=== PATIENT | female | born 1945 | race Two or more races ===

== ENCOUNTER 2022-01-09 21:40 | Inpatient (IN) | payer MEDICAID, OTHER ==
[~2022-01-09] VITALS: Ht 157.5 cm; Wt 77.7 kg
[2022-01-10 00:26] LABS: Basophils # (auto) 0.1 10 ^3/uL (0-0.2); Basophils % (auto) 0.3 % (0.0-2.0); Monocytes # (auto) 0.9 10 ^3/uL (0-1.3)
[2022-01-10 00:28] LABS: Eosinophils # (auto) 0.1 10 ^3/uL (0-0.8); Eosinophils % (auto) 0.3 % (0.0-7.0); Hematocrit 32.6 % (36.0-46.0); Hemoglobin 10.9 g/dL (12.2-16.2); Lymphocytes # (auto) 2.1 10 ^3/uL (0.4-5.4); Lymphocytes % (auto) 10.8 % (10.0-50.0); Mean Corpuscular Hemoglobin 28.2 pg (28.0-32.0); Mean Corpuscular Hgb Conc. 33.3 g/dL (32.0-36.0); Mean Corpuscular Volume 84.7 fL (80.0-100.0); Monocytes % (auto) 4.5 % (0.0-12.0); Neutrophils # (auto) 16.2 10 ^3/uL (1.6-8.6); Neutrophils % (auto) 84.1 % (37.0-80.0); Red Blood Cells 3.85 10^6/uL (4.0-5.20); Red Cell Distribution Width 13.4 % (11.8-14.3); White Blood Cell 19.2 10^3/uL (4.4-10.8)
[2022-01-10] MEDS ORDERED: HYDROcodone-ACET 5/325MG TAB PO ONE (00:30)
[2022-01-10 00:38] LABS: Albumin 2.2 g/dL (3.4-5.0); Anion Gap 11 (5-15); Calcium 8.5 mg/dL (8.5-10.1); Carbon Dioxide 20 mmol/L (21-32); Chloride 102 mmol/L (98-107); Glucose 311 mg/dL (74-106); Potassium 3.4 mmol/L (3.5-5.1); Sodium 133 mmol/L (136-145)
[2022-01-10] MEDS ORDERED: VANCOMYCIN 1GM/250ML 250 ML IV ONE (00:45)
[2022-01-10 00:47] LABS: Alanine Aminotransferase 16 U/L (13-56); Alkaline Phosphatase 136 U/L (45-117); Aspartate Aminotransferase 12 U/L (15-37); BUN/Creatinine Ratio 18.3; Bilirubin, Total 0.2 mg/dL (0.2-1.0); Blood Urea Nitrogen 20 mg/dL (7-18); GFR African American 63 mL/min; GFR Non-African American 52 mL/min; Total Protein 7.5 g/dL (6.4-8.2)
[2022-01-10 01:20] LABS: CRP High Sensitivity > 19.0 mg/dL (< 0.3)
[2022-01-10] MEDS ORDERED: ONDANSETRON HCL 4 MG/2 ML VIAL IV PRN (06:00)
[2022-01-10] MEDS ORDERED: cloNIDine HCL 0.1 MG TAB PO PRN (06:00)
[2022-01-10] MEDS ORDERED: DEXTROSE (50%) 50ML SYRG IV PRN (06:00)
[2022-01-10] MEDS ORDERED: VANCOMYCIN PER PHARMACY 0 MG IV SCH (06:00)
[2022-01-10] MEDS: cefTRIAXone 1GM/50ML D5W 50 ML IV SCH (07:33)
[2022-01-10] MEDS: InsuLIN REG 1unit/0.01ml Soln (100units/ml) SC SCH ×4 (08:07→21:15)
[2022-01-10] MEDS: ACCU-CHEK COMFORT CURVE STRIP VI SCH ×4 (08:08→20:00)
[2022-01-10] MEDS: PANTOPRAZOLE 40 MG TAB PO SCH (09:37)
[2022-01-10] MEDS: amLODIPine BESYLATE 5 MG TAB PO SCH (09:41)
[2022-01-10] MEDS: HYDROcodone-ACET 5/325MG TAB PO PRN (13:00)
[2022-01-10 14:18] VITALS: BP 113/43
[2022-01-10] MEDS: metroNIDAZOLE 500 MG TAB PO SCH ×2 (14:46→21:13)
[2022-01-10] MEDS: ACETAMINOPHEN 325 MG TAB PO PRN ×2 (14:47→21:16)
[2022-01-10] MEDS ORDERED: INSREG3 SUBCUT (14:55)
[2022-01-10 16:41] VITALS: BP 116/53
[2022-01-10 20:00] VITALS: BP 152/43
[2022-01-10] MEDS: INSULIN LANTUS (GLARGINE) 1 /0.01ml (100units/ml) SC SCH (21:16)
[2022-01-10 22:00] VITALS: BP 152/43
[2022-01-11] MEDS: InsuLIN REG 1unit/0.01ml Soln (100units/ml) SC SCH ×6 (00:51→21:35)
[2022-01-11] MEDS: HYDROcodone-ACET 5/325MG TAB PO PRN ×3 (02:04→13:31)
[2022-01-11] MEDS: ACCU-CHEK COMFORT CURVE STRIP VI SCH ×6 (04:00→20:00)
[2022-01-11 05:00] VITALS: BP 139/45
[2022-01-11] MEDS: VANCOMYCIN 1GM/250ML 250 ML IV SCH (05:42)
[2022-01-11] MEDS: metroNIDAZOLE 500 MG TAB PO SCH ×3 (05:43→21:43)
[2022-01-11] MEDS: cefTRIAXone 1GM/50ML D5W 50 ML IV SCH (06:35)
[2022-01-11 06:46] LABS: Basophils # (auto) 0.1 10 ^3/uL (0-0.2); Basophils % (auto) 0.6 % (0.0-2.0); Eosinophils # (auto) 0.2 10 ^3/uL (0-0.8); Eosinophils % (auto) 1.4 % (0.0-7.0); Hematocrit 28.2 % (36.0-46.0); Hemoglobin 9.4 g/dL (12.2-16.2); Lymphocytes % (auto) 15.2 % (10.0-50.0); Mean Corpuscular Hemoglobin 28.1 pg (28.0-32.0); Mean Corpuscular Hgb Conc. 33.2 g/dL (32.0-36.0); Mean Corpuscular Volume 84.8 fL (80.0-100.0); Monocytes # (auto) 0.8 10 ^3/uL (0-1.3); Monocytes % (auto) 6.1 % (0.0-12.0); Neutrophils # (auto) 10.1 10 ^3/uL (1.6-8.6); Neutrophils % (auto) 76.7 % (37.0-80.0); Red Blood Cells 3.33 10^6/uL (4.0-5.20); Red Cell Distribution Width 13.4 % (11.8-14.3); White Blood Cell 13.2 10^3/uL (4.4-10.8)
[2022-01-11] MEDS: ACETAMINOPHEN 325 MG TAB PO PRN ×2 (06:46→21:43)
[2022-01-11 06:51] LABS: Albumin 1.8 g/dL (3.4-5.0); BUN/Creatinine Ratio 25.3; Calcium 8.6 mg/dL (8.5-10.1); Potassium 3.7 mmol/L (3.5-5.1)
[2022-01-11 07:01] LABS: Bilirubin, Total 0.2 mg/dL (0.2-1.0); Total Protein 6.4 g/dL (6.4-8.2)
[2022-01-11 08:53] VITALS: BP 140/40
[2022-01-11] MEDS: amLODIPine BESYLATE 5 MG TAB PO SCH (10:10)
[2022-01-11] MEDS: PANTOPRAZOLE 40 MG TAB PO SCH (10:10)
[2022-01-11 13:00] VITALS: BP 150/42
[2022-01-11] MEDS ORDERED: LOSARTAN POTASSIUM 25 MG TAB PO ONE (13:30)
[2022-01-11 17:00] VITALS: BP 161/54
[2022-01-11] MEDS ORDERED: HCTZ 25 MG TAB PO ONE (17:00)
[2022-01-11 20:00] VITALS: BP 149/50
[2022-01-11] MEDS: INSULIN LANTUS (GLARGINE) 1 /0.01ml (100units/ml) SC SCH (21:36)
[2022-01-11 21:46] VITALS: BP 151/53
[2022-01-12] MEDS: ACCU-CHEK COMFORT CURVE STRIP VI SCH ×6 (00:16→20:00)
[2022-01-12] MEDS: InsuLIN REG 1unit/0.01ml Soln (100units/ml) SC SCH ×6 (00:17→21:39)
[2022-01-12] MEDS: HYDROcodone-ACET 5/325MG TAB PO PRN ×2 (01:57→22:00)
[2022-01-12 04:31] VITALS: BP 131/65
[2022-01-12] MEDS: metroNIDAZOLE 500 MG TAB PO SCH ×3 (06:03→21:39)
[2022-01-12] MEDS: VANCOMYCIN 1GM/250ML 250 ML IV SCH (06:04)
[2022-01-12 09:00] VITALS: BP 154/80
[2022-01-12] MEDS ORDERED: CEFTRIAXONE SODIUM 2 GM in D5W 5% 50 ML IV SCH (10:00)
[2022-01-12] MEDS: amLODIPine BESYLATE 5 MG TAB PO SCH (11:28)
[2022-01-12] MEDS: HCTZ 25 MG TAB PO SCH (11:28)
[2022-01-12] MEDS: LOSARTAN POTASSIUM 25 MG TAB PO SCH (11:30)
[2022-01-12 13:00] VITALS: BP_SYST 101; BP_SYST 156; BP_DIAS 58; BP_DIAS 73
[2022-01-12 17:00] VITALS: BP 149/69
[2022-01-12] MEDS: PIPERACILLIN-TAZOB 3.375GM 100 ML IV SCH (17:38)
[2022-01-12 20:00] VITALS: BP 151/49
[2022-01-12] MEDS: INSULIN LANTUS (GLARGINE) 1 /0.01ml (100units/ml) SC SCH (21:40)
[2022-01-12] MEDS ORDERED: CEFEPIME 2 GM in SODIUM CHL 0.9% 50 ML IV SCH (22:00)
[2022-01-12 22:20] VITALS: BP 135/83
[2022-01-13] MEDS: InsuLIN REG 1unit/0.01ml Soln (100units/ml) SC SCH ×7 (00:43→23:17)
[2022-01-13] MEDS: PIPERACILLIN-TAZOB 3.375GM 100 ML IV SCH ×5 (00:44→23:18)
[2022-01-13] MEDS: ACCU-CHEK COMFORT CURVE STRIP VI SCH ×7 (04:00→23:18)
[2022-01-13 04:30] VITALS: BP 167/36
[2022-01-13] MEDS: HYDROcodone-ACET 5/325MG TAB PO PRN ×4 (04:45→20:20)
[2022-01-13] MEDS: metroNIDAZOLE 500 MG TAB PO SCH ×3 (05:37→21:55)
[2022-01-13] MEDS: VANCOMYCIN 1GM/250ML 250 ML IV SCH (06:30)
[2022-01-13 09:00] VITALS: BP 139/51
[2022-01-13] MEDS: LOSARTAN POTASSIUM 25 MG TAB PO SCH (10:24)
[2022-01-13] MEDS: HCTZ 25 MG TAB PO SCH (10:25)
[2022-01-13] MEDS: amLODIPine BESYLATE 5 MG TAB PO SCH (10:25)
[2022-01-13 13:00] VITALS: BP 136/53
[2022-01-13 17:00] VITALS: BP 113/53
[2022-01-13 22:09] VITALS: BP 128/55
[2022-01-13] MEDS: INSULIN LANTUS (GLARGINE) 1 /0.01ml (100units/ml) SC SCH (23:16)
[2022-01-14] MEDS: VANCOMYCIN 1GM/250ML 250 ML IV SCH ×2 (02:32→21:31)
[2022-01-14] MEDS: ACCU-CHEK COMFORT CURVE STRIP VI SCH ×6 (03:37→23:28)
[2022-01-14] MEDS: InsuLIN REG 1unit/0.01ml Soln (100units/ml) SC SCH ×6 (03:38→23:28)
[2022-01-14 04:59] VITALS: BP 153/68
[2022-01-14] MEDS: metroNIDAZOLE 500 MG TAB PO SCH ×3 (05:14→21:30)
[2022-01-14] MEDS: PIPERACILLIN-TAZOB 3.375GM 100 ML IV SCH ×4 (05:14→23:29)
[2022-01-14] MEDS: HYDROcodone-ACET 5/325MG TAB PO PRN ×4 (05:14→19:58)
[2022-01-14 09:00] VITALS: BP 144/49
[2022-01-14 09:31] LABS: Albumin 1.8 g/dL (3.4-5.0); BUN/Creatinine Ratio 19.8; Calcium 8.4 mg/dL (8.5-10.1); Phosphorus 3.1 mg/dL (2.5-4.90); Potassium 3.6 mmol/L (3.5-5.1)
[2022-01-14] MEDS: HCTZ 25 MG TAB PO SCH (09:50)
[2022-01-14] MEDS: LOSARTAN POTASSIUM 25 MG TAB PO SCH (09:50)
[2022-01-14] MEDS: amLODIPine BESYLATE 5 MG TAB PO SCH (09:50)
[2022-01-14 13:00] VITALS: BP 149/60
[2022-01-14] MEDS ORDERED: MILK OF MAGNESIA 30ML SUSP PO ONE (14:30)
[2022-01-14] MEDS: DOCUSATE SOD 100 MG CAP PO PRN (15:23)
[2022-01-14 17:00] VITALS: BP 142/43
[2022-01-14] MEDS: INSULIN LANTUS (GLARGINE) 1 /0.01ml (100units/ml) SC SCH (21:59)
[2022-01-14 22:00] VITALS: BP 133/48
[2022-01-14] MEDS ORDERED: DOCUSATE SOD 100 MG CAP PO SCH (22:00)
[2022-01-15] MEDS: ACCU-CHEK COMFORT CURVE STRIP VI SCH ×5 (03:33→19:36)
[2022-01-15] MEDS: InsuLIN REG 1unit/0.01ml Soln (100units/ml) SC SCH ×6 (03:37→23:28)
[2022-01-15 05:00] VITALS: BP 137/50
[2022-01-15] MEDS: PIPERACILLIN-TAZOB 3.375GM 100 ML IV SCH ×3 (05:28→22:38)
[2022-01-15] MEDS: metroNIDAZOLE 500 MG TAB PO SCH (05:28)
[2022-01-15 06:24] LABS: Albumin 1.9 g/dL (3.4-5.0); BUN/Creatinine Ratio 20.7; Calcium 8.4 mg/dL (8.5-10.1); Phosphorus 3.3 mg/dL (2.5-4.90); Potassium 4.1 mmol/L (3.5-5.1)
[2022-01-15 09:00] VITALS: BP 109/58
[2022-01-15] MEDS: HCTZ 25 MG TAB PO SCH (10:13)
[2022-01-15] MEDS: LOSARTAN POTASSIUM 25 MG TAB PO SCH (10:13)
[2022-01-15] MEDS: amLODIPine BESYLATE 5 MG TAB PO SCH (10:14)
[2022-01-15 10:40] LABS: Eosinophils # (auto) 0.1 10 ^3/uL (0-0.8); Lymphocytes # (auto) 1.3 10 ^3/uL (0.4-5.4); Monocytes # (auto) 0.9 10 ^3/uL (0-1.3); Red Blood Cells 3.68 10^6/uL (4.0-5.20)
[2022-01-15 10:45] LABS: Basophils # (auto) 0.1 10 ^3/uL (0-0.2); Basophils % (auto) 0.7 % (0.0-2.0); Eosinophils % (auto) 0.7 % (0.0-7.0); Hematocrit 31.4 % (36.0-46.0); Hemoglobin 10.1 g/dL (12.2-16.2); Lymphocytes % (auto) 10.9 % (10.0-50.0); Mean Corpuscular Hemoglobin 27.3 pg (28.0-32.0); Mean Corpuscular Volume 85.3 fL (80.0-100.0); Monocytes % (auto) 7.6 % (0.0-12.0); Neutrophils # (auto) 9.6 10 ^3/uL (1.6-8.6); Neutrophils % (auto) 80.1 % (37.0-80.0); Red Cell Distribution Width 13.2 % (11.8-14.3)
[2022-01-15] MEDS ORDERED: ASPirin 81 mg TAB PO ONE (12:15)
[2022-01-15 13:00] VITALS: BP 149/68
[2022-01-15 13:28] LABS: Cholesterol 76 mg/dL (< 200)
[2022-01-15 13:31] LABS: HDL Cholesterol 21 mg/dL (40-59); LDL Cholesterol 43 mg/dL (< 100); Triglycerides 82 mg/dL (< 150)
[2022-01-15] MEDS: HYDROcodone-ACET 5/325MG TAB PO PRN (15:33)
[2022-01-15 17:00] VITALS: BP 143/63
[2022-01-15] MEDS: DOCUSATE SOD 100 MG CAP PO PRN (21:27)
[2022-01-15] MEDS: ATORVASTATIN 20 MG TAB PO SCH ×2 (21:27→21:44)
[2022-01-15 22:51] VITALS: BP 145/56
[2022-01-15] MEDS: INSULIN LANTUS (GLARGINE) 1 /0.01ml (100units/ml) SC SCH (23:28)
[2022-01-16] MEDS: ACCU-CHEK COMFORT CURVE STRIP VI SCH ×7 (00:06→23:36)
[2022-01-16] MEDS: PIPERACILLIN-TAZOB 3.375GM 100 ML IV SCH ×4 (03:48→22:40)
[2022-01-16] MEDS: InsuLIN REG 1unit/0.01ml Soln (100units/ml) SC SCH ×6 (03:55→23:37)
[2022-01-16] MEDS: HYDROcodone-ACET 5/325MG TAB PO PRN ×2 (04:11→11:22)
[2022-01-16 05:25] LABS: Hemoglobin 9.1 g/dL (12.2-16.2); Mean Corpuscular Hemoglobin 28.5 pg (28.0-32.0); Monocytes # (auto) 0.9 10 ^3/uL (0-1.3); Red Cell Distribution Width 13.3 % (11.8-14.3)
[2022-01-16 05:29] LABS: Basophils # (auto) 0 10 ^3/uL (0-0.2); Basophils % (auto) 0.4 % (0.0-2.0); Eosinophils # (auto) 0.1 10 ^3/uL (0-0.8); Eosinophils % (auto) 0.5 % (0.0-7.0); Hematocrit 26.7 % (36.0-46.0); Lymphocytes # (auto) 1.6 10 ^3/uL (0.4-5.4); Lymphocytes % (auto) 14.7 % (10.0-50.0); Mean Corpuscular Hgb Conc. 34.2 g/dL (32.0-36.0); Mean Corpuscular Volume 83.5 fL (80.0-100.0); Monocytes % (auto) 8.4 % (0.0-12.0); Neutrophils # (auto) 8.1 10 ^3/uL (1.6-8.6); Red Blood Cells 3.19 10^6/uL (4.0-5.20); White Blood Cell 10.6 10^3/uL (4.4-10.8)
[2022-01-16 05:46] VITALS: BP 135/45
[2022-01-16 06:26] LABS: BUN/Creatinine Ratio 19.6; Calcium 8.6 mg/dL (8.5-10.1); Potassium 3.5 mmol/L (3.5-5.1)
[2022-01-16 09:00] VITALS: BP 121/52
[2022-01-16] MEDS ORDERED: ASPirin 81 mg TAB PO SCH (10:00)
[2022-01-16] MEDS: amLODIPine BESYLATE 5 MG TAB PO SCH (11:21)
[2022-01-16] MEDS: HCTZ 25 MG TAB PO SCH (11:23)
[2022-01-16 13:00] VITALS: BP 142/41
[2022-01-16 17:00] VITALS: BP 116/68
[2022-01-16] MEDS: LOSARTAN POTASSIUM 25 MG TAB PO SCH (18:31)
[2022-01-16] MEDS: ATORVASTATIN 20 MG TAB PO SCH (21:37)
[2022-01-16 22:14] VITALS: BP 91/40
[2022-01-16] MEDS: INSULIN LANTUS (GLARGINE) 1 /0.01ml (100units/ml) SC SCH (23:38)
[2022-01-17] VITALS (8 sets, daily range): BP systolic 106–168; BP diastolic 44–53
[2022-01-17] MEDS: PIPERACILLIN-TAZOB 3.375GM 100 ML IV SCH ×4 (03:52→22:19)
[2022-01-17] MEDS: InsuLIN REG 1unit/0.01ml Soln (100units/ml) SC SCH ×6 (03:53→23:22)
[2022-01-17] MEDS: ACCU-CHEK COMFORT CURVE STRIP VI SCH ×6 (03:53→23:13)
[2022-01-17 04:55] LABS: Urine Bacteria NONE SEEN /hpf (None Seen); Urine Blood Negative /uL (Negative); Urine Specific Gravity 1.008 (1.001-1.035); Urine WBC <1 /hpf (0 - 5)
[2022-01-17 06:19] LABS: Basophils # (auto) 0.1 10 ^3/uL (0-0.2); Basophils % (auto) 0.5 % (0.0-2.0); Eosinophils # (auto) 0.1 10 ^3/uL (0-0.8); Hemoglobin 9.1 g/dL (12.2-16.2)
[2022-01-17 06:22] LABS: Eosinophils % (auto) 1.3 % (0.0-7.0); Lymphocytes # (auto) 1.7 10 ^3/uL (0.4-5.4); Lymphocytes % (auto) 16.3 % (10.0-50.0); Mean Corpuscular Hemoglobin 28.3 pg (28.0-32.0); Mean Corpuscular Hgb Conc. 33.7 g/dL (32.0-36.0); Mean Corpuscular Volume 83.8 fL (80.0-100.0); Monocytes % (auto) 9.4 % (0.0-12.0); Neutrophils # (auto) 7.4 10 ^3/uL (1.6-8.6); Neutrophils % (auto) 72.5 % (37.0-80.0); Red Blood Cells 3.22 10^6/uL (4.0-5.20); Red Cell Distribution Width 13.1 % (11.8-14.3); White Blood Cell 10.2 10^3/uL (4.4-10.8)
[2022-01-17 06:32] LABS: INR 1.13 (0.9-1.15); Partial Thromboplastin Time 33.7 sec (24.6-33.4)
[2022-01-17 06:40] LABS: Calcium 8.4 mg/dL (8.5-10.1); Potassium 4.1 mmol/L (3.5-5.1)
[2022-01-17 06:42] LABS: BUN/Creatinine Ratio 24.2
[2022-01-17] MEDS ORDERED: fentaNYL CITRATE 100 MCG/2 ML VL ONE (09:29)
[2022-01-17] MEDS ORDERED: ANGIOMAX 250 MG VIAL IV ONE ×2 (09:29→11:08)
[2022-01-17] MEDS ORDERED: MIDAZOLAM HCL 2MG/2ML 2ml VIAL (1mg/ml) ONE (09:30)
[2022-01-17] MEDS ORDERED: SODIUM CHL 0.9% 50 ML ONE ×2 (09:30→11:08)
[2022-01-17] MEDS ORDERED: LIDOCAINE 2%HCL (LOCAL ANESTH.) INJ 20ML MDV ONE (09:32)
[2022-01-17] MEDS: HCTZ 25 MG TAB PO SCH (10:00)
[2022-01-17] MEDS: amLODIPine BESYLATE 5 MG TAB PO SCH (10:00)
[2022-01-17] MEDS: LOSARTAN POTASSIUM 25 MG TAB PO SCH (10:00)
[2022-01-17] MEDS ORDERED: IODIXANOL 320MG/ML 100ML BTL IV ONE (10:34)
[2022-01-17] MEDS ORDERED: HYDROmorphone HCL 2 MG/ML VL/or syr ONE (10:48)
[2022-01-17] MEDS ORDERED: CLOPIDOGREL 300 MG TAB ONE (11:56)
[2022-01-17] MEDS: ATORVASTATIN 20 MG TAB PO SCH (22:19)
[2022-01-17] MEDS: RIVAROXABAN 10 MG TAB PO SCH (22:19)
[2022-01-17] MEDS: INSULIN LANTUS (GLARGINE) 1 /0.01ml (100units/ml) SC SCH (23:21)
[2022-01-18] MEDS: PIPERACILLIN-TAZOB 3.375GM 100 ML IV SCH ×4 (04:13→22:00)
[2022-01-18] MEDS: ACCU-CHEK COMFORT CURVE STRIP VI SCH ×5 (04:13→20:13)
[2022-01-18] MEDS: InsuLIN REG 1unit/0.01ml Soln (100units/ml) SC SCH ×5 (04:17→20:23)
[2022-01-18 05:00] VITALS: BP 148/52
[2022-01-18 08:50] VITALS: BP 139/76
[2022-01-18 09:15] LABS: Basophils # (auto) 0 10 ^3/uL (0-0.2); Eosinophils # (auto) 0.1 10 ^3/uL (0-0.8); Hemoglobin 10.1 g/dL (12.2-16.2); Lymphocytes # (auto) 1.4 10 ^3/uL (0.4-5.4); Red Blood Cells 3.71 10^6/uL (4.0-5.20)
[2022-01-18 09:17] LABS: Basophils % (auto) 0.2 % (0.0-2.0); Eosinophils % (auto) 0.8 % (0.0-7.0); Hematocrit 31.9 % (36.0-46.0); Lymphocytes % (auto) 11.3 % (10.0-50.0); Mean Corpuscular Hemoglobin 27.2 pg (28.0-32.0); Mean Corpuscular Hgb Conc. 31.7 g/dL (32.0-36.0); Monocytes # (auto) 0.8 10 ^3/uL (0-1.3); Monocytes % (auto) 6.9 % (0.0-12.0); Neutrophils # (auto) 9.9 10 ^3/uL (1.6-8.6); Neutrophils % (auto) 80.8 % (37.0-80.0); Red Cell Distribution Width 13.4 % (11.8-14.3); White Blood Cell 12.3 10^3/uL (4.4-10.8)
[2022-01-18] MEDS: LOSARTAN POTASSIUM 25 MG TAB PO SCH (09:26)
[2022-01-18] MEDS: HCTZ 25 MG TAB PO SCH (09:27)
[2022-01-18] MEDS: amLODIPine BESYLATE 5 MG TAB PO SCH (09:27)
[2022-01-18] MEDS: RIVAROXABAN 10 MG TAB PO SCH ×2 (09:28→22:37)
[2022-01-18 09:33] LABS: Calcium 8.7 mg/dL (8.5-10.1); Potassium 4.1 mmol/L (3.5-5.1)
[2022-01-18] MEDS ORDERED: CLOPIDOGREL BISULFATE 75 MG TAB PO SCH (10:00)
[2022-01-18] MEDS ORDERED: SODIUM CHLORIDE 0.9% 1,000 ML IV SCH (10:00)
[2022-01-18] MEDS ORDERED: HYDR25TA5 PO (12:15)
[2022-01-18] MEDS ORDERED: LOSA-39 PO (12:15)
[2022-01-18] MEDS ORDERED: AML5T PO (12:15)
[2022-01-18] MEDS ORDERED: CLOP75TA70 PO (12:15)
[2022-01-18] MEDS ORDERED: ATOR20TA50 PO (12:15)
[2022-01-18] MEDS ORDERED: METF-490 PO (12:17)
[2022-01-18] MEDS ORDERED: RIV15T PO (12:17)
[2022-01-18] MEDS ORDERED: GLIP10TA16 PO (12:18)
[2022-01-18] MEDS ORDERED: LEVO750T64 PO (12:20)
[2022-01-18] MEDS ORDERED: DOXY-112 PO (12:20)
[2022-01-18] MEDS ORDERED: [UNRECOGNIZED DRUG - CODE] EX (12:23)
[2022-01-18 13:08] VITALS: BP 101/65
[2022-01-18] MEDS: HYDROcodone-ACET 5/325MG TAB PO PRN (17:00)
[2022-01-18 17:31] VITALS: BP 109/41
[2022-01-18 19:00] VITALS: BP 109/41
[2022-01-18] MEDS ORDERED: METOCLOPRAMIDE HCL 10 MG TAB PO ONE (19:45)
[2022-01-18] MEDS ORDERED: DexAMETHasone 4 MG TAB PO ONE (19:45)
[2022-01-18] MEDS ORDERED: diphenhdrAMINE HCL 25 MG CAP PO ONE (19:45)
[2022-01-18 22:00] VITALS: BP 123/43
[2022-01-18] MEDS: ATORVASTATIN 20 MG TAB PO SCH (22:37)
[2022-01-18] MEDS: INSULIN LANTUS (GLARGINE) 1 /0.01ml (100units/ml) SC SCH (22:51)
== END 2022-01-18 23:10 | disposition home or self-care (01) | DRG 710 ==
LOC: ER 21:47 → EDBD 21:47 → OVERFLOW 01-10 06:03 → EAST 01-10 13:59
PROVIDERS: ADMIT Nurse Practitioner; ATTEND Internal Medicine Nephrology
PROC: 047P3ZZ Dilation of Right Anterior Tibial Artery, Percutaneous Approach (ICD-10-PCS; principal; 2022-01-17)
PROC: 047N3ZZ Dilation of Left Popliteal Artery, Percutaneous Approach (ICD-10-PCS; 2022-01-17)
PROC: 047M3ZZ Dilation of Right Popliteal Artery, Percutaneous Approach (ICD-10-PCS; 2022-01-17)
PROC: B41G1ZZ Fluoroscopy of Left Lower Extremity Arteries using Low Osmolar Contrast (ICD-10-PCS; 2022-01-17)
PROC: B41F1ZZ Fluoroscopy of Right Lower Extremity Arteries using Low Osmolar Contrast (ICD-10-PCS; 2022-01-17)
DX: A41.9 Sepsis, unspecified organism (principal); E43 Unspecified severe protein-calorie malnutrition; N17.9 Acute kidney failure, unspecified; E11.22 Type 2 diabetes mellitus with diabetic chronic kidney disease; L97.509 Non-pressure chronic ulcer of other part of unspecified foot with unspecified severity; L02.612 Cutaneous abscess of left foot; M86.8X7 Other osteomyelitis, ankle and foot; E11.51 Type 2 diabetes mellitus with diabetic peripheral angiopathy without gangrene; E11.621 Type 2 diabetes mellitus with foot ulcer; Z20.822 Contact with and (suspected) exposure to COVID-19; N18.9 Chronic kidney disease, unspecified; E11.65 Type 2 diabetes mellitus with hyperglycemia; E87.6 Hypokalemia; S90.32XA Contusion of left foot, initial encounter; W18.39XA Other fall on same level, initial encounter; I12.9 Hypertensive chronic kidney disease with stage 1 through stage 4 chronic kidney disease, or unspecified chronic kidney disease; E11.69 Type 2 diabetes mellitus with other specified complication; S92.009A Unspecified fracture of unspecified calcaneus, initial encounter for closed fracture; Z79.4 Long term (current) use of insulin; Z68.31 Body mass index [BMI] 31.0-31.9, adult; Y93.89 Activity, other specified; Y92.89 Other specified places as the place of occurrence of the external cause; Y99.8 Other external cause status
CPT/HCPCS: 36415; 37224; 37228; 71045; 73630; 73700; 73721; 75716; 80048; 80053; 80061; 80069; 80202; 81001; 82565; 82962; 83036; 83605; 85025; 85610; 85652; 85730; 86141; 87040; 87077; 87186; 87205; 87426; 93005; 93926; 96365; 96367; 99152; 99153; A4565; C1769; G0378; J0696; J1815; J2250; J2405; J2543; J7060; Q9967

== ENCOUNTER 2022-02-05 21:00 | Inpatient (IN) | payer MEDICAID ==
[~2022-02-05] VITALS: Ht 157.5 cm; Wt 65.2 kg
[~2022-02-05 21:00] MED LIST: AML5T PO; ATOR20TA50 PO; CLOP75TA70 PO; DOXY-112 PO; GLIP10TA16 PO; HYDR25TA5 PO; INSREG3 SUBCUT; LEVO750T64 PO; LOSA-39 PO; METF-490 PO; RIV15T PO; [UNRECOGNIZED DRUG - CODE] EX
[2022-02-05 23:01] LABS: Basophils # (auto) 0.1 10 ^3/uL (0-0.2); Eosinophils # (auto) 0.1 10 ^3/uL (0-0.8); Hemoglobin 8.6 g/dL (12.2-16.2); Neutrophils # (auto) 9.4 10 ^3/uL (1.6-8.6); White Blood Cell 12.3 10^3/uL (4.4-10.8)
[2022-02-05 23:03] LABS: Basophils % (auto) 0.8 % (0.0-2.0); Hematocrit 26.3 % (36.0-46.0); Lymphocytes # (auto) 1.9 10 ^3/uL (0.4-5.4); Lymphocytes % (auto) 15.6 % (10.0-50.0); Mean Corpuscular Hemoglobin 26.6 pg (28.0-32.0); Mean Corpuscular Hgb Conc. 32.8 g/dL (32.0-36.0); Mean Corpuscular Volume 81.2 fL (80.0-100.0); Monocytes # (auto) 0.8 10 ^3/uL (0-1.3); Monocytes % (auto) 6.2 % (0.0-12.0); Neutrophils % (auto) 76.4 % (37.0-80.0); Red Blood Cells 3.24 10^6/uL (4.0-5.20); Red Cell Distribution Width 13.3 % (11.8-14.3)
[2022-02-05 23:23] LABS: Albumin 2.3 g/dL (3.4-5.0); BUN/Creatinine Ratio 30.9; Calcium 8.7 mg/dL (8.5-10.1)
[2022-02-05 23:27] LABS: Bilirubin, Total 0.4 mg/dL (0.2-1.0); Total Protein 7.9 g/dL (6.4-8.2)
[2022-02-06] MEDS ORDERED: VANCOMYCIN 1GM/250ML 250 ML IV ONE (02:00)
[2022-02-06] MEDS ORDERED: diphenhdrAMINE HCL 50 MG/1 ML VL IV ONE (03:45)
[2022-02-06] MEDS ORDERED: SODIUM CHLORIDE 0.9% 1,000 ML IV ONE (04:30)
[2022-02-06] MEDS ORDERED: amLODIPine BESYLATE 5 MG TAB PO ONE (04:30)
[2022-02-06] MEDS ORDERED: ceFAZolin 1GM/50ML 50 ML IV SCH (05:00)
[2022-02-06 05:50] LABS: Urine Bacteria FEW /hpf (None Seen); Urine Blood Negative /uL (Negative); Urine Specific Gravity 1.005 (1.001-1.035); Urine WBC 20 /hpf (0 - 5)
[2022-02-06] MEDS ORDERED: DEXTROSE (50%) 50ML SYRG IV PRN (06:30)
[2022-02-06] MEDS: CLINDAMYCIN 900MG IV 50 ML IV SCH ×2 (06:37→14:27)
[2022-02-06 06:43] LABS: Alcohol, Urine < 3.0 mg/dL (0-10); Amphetamine Screen, Urine NEGATIVE (NEGATIVE); Barbiturate Scree,Urine NEGATIVE (NEGATIVE); Benzodiazephine Screen, Urine NEGATIVE (NEGATIVE); Cannabinoid Screen, Urine NEGATIVE (NEGATIVE); Cocaine Screen, Urine NEGATIVE (NEGATIVE); Opiate Scree,Urine NEGATIVE (NEGATIVE); Phencyclidine Screen, Urine NEGATIVE (NEGATIVE)
[2022-02-06] MEDS: ACCU-CHEK COMFORT CURVE STRIP VI SCH ×4 (06:54→21:43)
[2022-02-06] MEDS: InsuLIN REG 1unit/0.01ml Soln (100units/ml) SC SCH ×4 (06:57→22:10)
[2022-02-06] MEDS ORDERED: cefTRIAXone 1GM/50ML D5W 50 ML IV SCH (09:00)
[2022-02-06] MEDS: HCTZ 25 MG TAB PO SCH (10:24)
[2022-02-06] MEDS: PANTOPRAZOLE 40 MG TAB PO SCH (10:25)
[2022-02-06] MEDS: amLODIPine BESYLATE 5 MG TAB PO SCH (10:25)
[2022-02-06] MEDS: CLOPIDOGREL BISULFATE 75 MG TAB PO SCH (10:25)
[2022-02-06] MEDS: LOSARTAN POTASSIUM 50 MG TAB PO SCH (10:25)
[2022-02-06] MEDS: ACETAMINOPHEN 325 MG TAB PO PRN (13:33)
[2022-02-06] MEDS ORDERED: PIPERACILLIN-TAZOB 3.375GM 100 ML IV ONE (15:00)
[2022-02-06] MEDS ORDERED: LINEZOLID 600MG TABLET PO ONE (15:15)
[2022-02-06 17:00] VITALS: BP 122/40
[2022-02-06] MEDS: PIPERACILLIN-TAZOB 3.375GM 100 ML IV SCH (21:36)
[2022-02-06] MEDS: LINEZOLID 600MG TABLET PO SCH (21:37)
[2022-02-06] MEDS: ATORVASTATIN 20 MG TAB PO SCH (21:38)
[2022-02-06 22:00] VITALS: BP 152/43
[2022-02-06 23:00] VITALS: BP 150/40
[2022-02-06 23:20] VITALS: BP 141/42
[2022-02-07 02:13] VITALS: BP 126/36
[2022-02-07 05:00] VITALS: BP 136/45
[2022-02-07 05:38] LABS: Basophils # (auto) 0 10 ^3/uL (0-0.2); Basophils % (auto) 0.4 % (0.0-2.0); Eosinophils # (auto) 0.2 10 ^3/uL (0-0.8); Eosinophils % (auto) 2.1 % (0.0-7.0); Hematocrit 29.1 % (36.0-46.0); Hemoglobin 9.8 g/dL (12.2-16.2); Lymphocytes # (auto) 1.5 10 ^3/uL (0.4-5.4); Lymphocytes % (auto) 15.1 % (10.0-50.0); Mean Corpuscular Hemoglobin 28.1 pg (28.0-32.0); Mean Corpuscular Hgb Conc. 33.7 g/dL (32.0-36.0); Mean Corpuscular Volume 83.3 fL (80.0-100.0); Monocytes # (auto) 0.8 10 ^3/uL (0-1.3); Monocytes % (auto) 7.9 % (0.0-12.0); Neutrophils # (auto) 7.2 10 ^3/uL (1.6-8.6); Neutrophils % (auto) 74.5 % (37.0-80.0); Red Cell Distribution Width 13.3 % (11.8-14.3); White Blood Cell 9.7 10^3/uL (4.4-10.8)
[2022-02-07] MEDS: PIPERACILLIN-TAZOB 3.375GM 100 ML IV SCH ×3 (05:38→22:35)
[2022-02-07 05:56] LABS: Albumin 1.9 g/dL (3.4-5.0); Calcium 8.3 mg/dL (8.5-10.1); Potassium 3.7 mmol/L (3.5-5.1)
[2022-02-07 05:59] LABS: BUN/Creatinine Ratio 27.5
[2022-02-07 06:11] LABS: Bilirubin, Total 0.4 mg/dL (0.2-1.0); Total Protein 6.7 g/dL (6.4-8.2)
[2022-02-07 07:00] VITALS: BP 158/57
[2022-02-07] MEDS: ACCU-CHEK COMFORT CURVE STRIP VI SCH ×4 (07:00→22:36)
[2022-02-07] MEDS: InsuLIN REG 1unit/0.01ml Soln (100units/ml) SC SCH ×4 (07:00→22:37)
[2022-02-07 08:33] LABS: INR 1.12 (0.9-1.15)
[2022-02-07 09:00] VITALS: BP 134/45
[2022-02-07] MEDS: LINEZOLID 600MG TABLET PO SCH ×2 (10:00→22:35)
[2022-02-07] MEDS: HCTZ 25 MG TAB PO SCH (10:00)
[2022-02-07] MEDS: LOSARTAN POTASSIUM 50 MG TAB PO SCH (10:00)
[2022-02-07] MEDS: CLOPIDOGREL BISULFATE 75 MG TAB PO SCH (10:00)
[2022-02-07] MEDS: PANTOPRAZOLE 40 MG TAB PO SCH (10:00)
[2022-02-07] MEDS: amLODIPine BESYLATE 5 MG TAB PO SCH (10:00)
[2022-02-07] MEDS ORDERED: ceFAZolin 1GM/50ML 0 ML IV ONE (10:24)
[2022-02-07] MEDS ORDERED: BUPIVACAINE HCL 0.25% P/F 10 ML VIAL ONE (11:06)
[2022-02-07] MEDS ORDERED: LIDOCAINE 1%HCL (LOCAL ANESTH) 10 ML MDV ONE (11:06)
[2022-02-07] MEDS ORDERED: fentaNYL CITRATE 100 MCG/2 ML VL ONE (11:30)
[2022-02-07] MEDS ORDERED: MIDAZOLAM HCL 2MG/2ML 2ml VIAL (1mg/ml) ONE (11:30)
[2022-02-07] MEDS ORDERED: ETOMIDATE (2MG/ML) 20ML VIAL IV ONE (11:57)
[2022-02-07] MEDS ORDERED: HYDROmorphone HCL 2 MG/ML VL/or syr IV PRN (12:45)
[2022-02-07] MEDS ORDERED: ONDANSETRON HCL 4 MG/2 ML VIAL IV PRN (12:45)
[2022-02-07] MEDS: HYDROcodone-ACET 5/325MG TAB PO PRN ×2 (14:41→20:12)
[2022-02-07 16:51] VITALS: BP 131/46
[2022-02-07 21:47] VITALS: BP 155/50
[2022-02-07] MEDS: ATORVASTATIN 20 MG TAB PO SCH (22:35)
[2022-02-08] MEDS: HYDROcodone-ACET 5/325MG TAB PO PRN ×2 (00:38→09:15)
[2022-02-08 05:15] VITALS: BP 149/42
[2022-02-08] MEDS: PIPERACILLIN-TAZOB 3.375GM 100 ML IV SCH ×3 (05:45→21:53)
[2022-02-08] MEDS: InsuLIN REG 1unit/0.01ml Soln (100units/ml) SC SCH ×4 (06:06→21:56)
[2022-02-08] MEDS: ACCU-CHEK COMFORT CURVE STRIP VI SCH ×4 (06:06→21:54)
[2022-02-08 09:00] VITALS: BP 154/43
[2022-02-08] MEDS: PANTOPRAZOLE 40 MG TAB PO SCH (09:08)
[2022-02-08] MEDS: HCTZ 25 MG TAB PO SCH (09:10)
[2022-02-08] MEDS: amLODIPine BESYLATE 5 MG TAB PO SCH (09:10)
[2022-02-08] MEDS: LOSARTAN POTASSIUM 50 MG TAB PO SCH (09:11)
[2022-02-08] MEDS: CLOPIDOGREL BISULFATE 75 MG TAB PO SCH (09:12)
[2022-02-08] MEDS: LINEZOLID 600MG TABLET PO SCH (09:12)
[2022-02-08] MEDS: MORPHINE SULFATE INJ 2 MG/ml SYRG IV PRN ×2 (11:32→20:47)
[2022-02-08 13:00] VITALS: BP 127/56
[2022-02-08 17:00] VITALS: BP 135/48
[2022-02-08] MEDS: ATORVASTATIN 20 MG TAB PO SCH (21:54)
[2022-02-08] MEDS: DAKINS QUARTER STR 0.125% (NaHypochlorite) 473 ML TOPICAL SOL TOP SCH (21:57)
[2022-02-08 22:00] VITALS: BP 156/43
[2022-02-09 05:00] VITALS: BP 121/31
[2022-02-09] MEDS: HYDROcodone-ACET 5/325MG TAB PO PRN ×2 (05:04→23:53)
[2022-02-09] MEDS: PIPERACILLIN-TAZOB 3.375GM 100 ML IV SCH (05:27)
[2022-02-09 06:04] LABS: Basophils # (auto) 0.1 10 ^3/uL (0-0.2); Basophils % (auto) 0.4 % (0.0-2.0); Eosinophils # (auto) 0.2 10 ^3/uL (0-0.8); Eosinophils % (auto) 1.3 % (0.0-7.0); Hematocrit 28.1 % (36.0-46.0); Hemoglobin 9.5 g/dL (12.2-16.2); Lymphocytes # (auto) 1.6 10 ^3/uL (0.4-5.4); Lymphocytes % (auto) 13.3 % (10.0-50.0); Mean Corpuscular Volume 82.4 fL (80.0-100.0); Monocytes # (auto) 0.8 10 ^3/uL (0-1.3); Monocytes % (auto) 6.5 % (0.0-12.0); Neutrophils # (auto) 9.4 10 ^3/uL (1.6-8.6); Neutrophils % (auto) 78.5 % (37.0-80.0); Red Blood Cells 3.41 10^6/uL (4.0-5.20); Red Cell Distribution Width 14.1 % (11.8-14.3)
[2022-02-09 06:25] LABS: BUN/Creatinine Ratio 20.8; Potassium 4.4 mmol/L (3.5-5.1)
[2022-02-09] MEDS: ACCU-CHEK COMFORT CURVE STRIP VI SCH ×4 (06:36→21:36)
[2022-02-09] MEDS: InsuLIN REG 1unit/0.01ml Soln (100units/ml) SC SCH ×4 (06:37→21:38)
[2022-02-09 09:00] VITALS: BP 112/44
[2022-02-09] MEDS: LOSARTAN POTASSIUM 50 MG TAB PO SCH (10:00)
[2022-02-09] MEDS: HCTZ 25 MG TAB PO SCH (10:00)
[2022-02-09] MEDS: amLODIPine BESYLATE 5 MG TAB PO SCH (10:00)
[2022-02-09] MEDS ORDERED: MORPHINE SULFATE INJ 2 MG/ml SYRG IM ONE (10:15)
[2022-02-09] MEDS ORDERED: MORPHINE SULFATE INJ 2 MG/ml SYRG IV ONE (10:30)
[2022-02-09] MEDS ORDERED: CEFTRIAXONE SODIUM 2 GM in D5W 5% 50 ML IV ONE (11:00)
[2022-02-09 13:00] VITALS: BP 136/52
[2022-02-09] MEDS: CLOPIDOGREL BISULFATE 75 MG TAB PO SCH (13:13)
[2022-02-09 17:00] VITALS: BP 178/66
[2022-02-09] MEDS: DAKINS QUARTER STR 0.125% (NaHypochlorite) 473 ML TOPICAL SOL TOP SCH ×2 (17:08→21:41)
[2022-02-09] MEDS: MORPHINE SULFATE INJ 2 MG/ml SYRG IV PRN ×2 (17:38→22:36)
[2022-02-09] MEDS: metroNIDAZOLE 500 MG TAB PO SCH ×2 (18:39→21:40)
[2022-02-09] MEDS: ATORVASTATIN 20 MG TAB PO SCH (21:41)
[2022-02-09 22:00] VITALS: BP 124/43
[2022-02-10 05:12] VITALS: BP 146/48
[2022-02-10 06:15] LABS: Basophils # (auto) 0 10 ^3/uL (0-0.2); Basophils % (auto) 0.3 % (0.0-2.0); Eosinophils # (auto) 0.1 10 ^3/uL (0-0.8); Eosinophils % (auto) 1.1 % (0.0-7.0); Hematocrit 30.2 % (36.0-46.0); Hemoglobin 9.9 g/dL (12.2-16.2); Lymphocytes % (auto) 15.4 % (10.0-50.0); Mean Corpuscular Hgb Conc. 32.6 g/dL (32.0-36.0); Mean Corpuscular Volume 82.7 fL (80.0-100.0); Monocytes # (auto) 1.2 10 ^3/uL (0-1.3); Monocytes % (auto) 9.3 % (0.0-12.0); Neutrophils # (auto) 9.5 10 ^3/uL (1.6-8.6); Neutrophils % (auto) 73.9 % (37.0-80.0); Red Blood Cells 3.66 10^6/uL (4.0-5.20); Red Cell Distribution Width 13.7 % (11.8-14.3); White Blood Cell 12.9 10^3/uL (4.4-10.8)
[2022-02-10] MEDS: ACCU-CHEK COMFORT CURVE STRIP VI SCH ×4 (06:24→22:14)
[2022-02-10] MEDS: metroNIDAZOLE 500 MG TAB PO SCH ×3 (06:25→22:14)
[2022-02-10] MEDS: InsuLIN REG 1unit/0.01ml Soln (100units/ml) SC SCH ×4 (06:31→22:11)
[2022-02-10 06:36] LABS: BUN/Creatinine Ratio 21.3; Calcium 8.3 mg/dL (8.5-10.1)
[2022-02-10] MEDS: MORPHINE SULFATE INJ 2 MG/ml SYRG IV PRN ×2 (06:37→22:16)
[2022-02-10 09:00] VITALS: BP 148/53
[2022-02-10] MEDS ORDERED: cefTRIAXone 1GM/50ML D5W 100 ML IV ONE (09:49)
[2022-02-10] MEDS: CLOPIDOGREL BISULFATE 75 MG TAB PO SCH (09:50)
[2022-02-10] MEDS: amLODIPine BESYLATE 5 MG TAB PO SCH (09:51)
[2022-02-10] MEDS: HCTZ 25 MG TAB PO SCH (09:52)
[2022-02-10] MEDS: LOSARTAN POTASSIUM 50 MG TAB PO SCH (09:52)
[2022-02-10] MEDS: CEFTRIAXONE SODIUM 2 GM in D5W 5% 50 ML IV SCH (09:55)
[2022-02-10] MEDS: DAKINS QUARTER STR 0.125% (NaHypochlorite) 473 ML TOPICAL SOL TOP SCH ×2 (10:30→23:20)
[2022-02-10 12:52] VITALS: BP 146/46
[2022-02-10 17:00] VITALS: BP 149/53
[2022-02-10 21:00] VITALS: BP 154/54
[2022-02-10] MEDS: ATORVASTATIN 20 MG TAB PO SCH (22:15)
[2022-02-11] MEDS: HYDROcodone-ACET 5/325MG TAB PO PRN ×2 (00:20→22:38)
[2022-02-11] MEDS: ACCU-CHEK COMFORT CURVE STRIP VI SCH ×4 (05:34→22:41)
[2022-02-11] MEDS: InsuLIN REG 1unit/0.01ml Soln (100units/ml) SC SCH ×4 (05:46→22:42)
[2022-02-11] MEDS: metroNIDAZOLE 500 MG TAB PO SCH ×3 (05:46→22:37)
[2022-02-11] MEDS: MORPHINE SULFATE INJ 2 MG/ml SYRG IV PRN (05:57)
[2022-02-11 05:58] VITALS: BP 114/50
[2022-02-11 09:00] VITALS: BP 136/45
[2022-02-11] MEDS: CEFTRIAXONE SODIUM 2 GM in D5W 5% 50 ML IV SCH (09:33)
[2022-02-11] MEDS: amLODIPine BESYLATE 5 MG TAB PO SCH (09:34)
[2022-02-11] MEDS: HCTZ 25 MG TAB PO SCH (09:34)
[2022-02-11] MEDS: LOSARTAN POTASSIUM 50 MG TAB PO SCH (09:34)
[2022-02-11] MEDS: CLOPIDOGREL BISULFATE 75 MG TAB PO SCH (09:34)
[2022-02-11] MEDS: DAKINS QUARTER STR 0.125% (NaHypochlorite) 473 ML TOPICAL SOL TOP SCH ×2 (09:35→22:42)
[2022-02-11] MEDS: Pro-Stat SF 30ml Vanilla PO SCH (09:35)
[2022-02-11 13:00] VITALS: BP 138/59
[2022-02-11 17:00] VITALS: BP 149/46
[2022-02-11 22:00] VITALS: BP 128/44
[2022-02-11] MEDS: ATORVASTATIN 20 MG TAB PO SCH (22:40)
[2022-02-11] MEDS: ACETAMINOPHEN 325 MG TAB PO PRN (22:40)
[2022-02-12 05:00] VITALS: BP 115/45
[2022-02-12] MEDS: metroNIDAZOLE 500 MG TAB PO SCH ×3 (05:38→21:37)
[2022-02-12] MEDS: InsuLIN REG 1unit/0.01ml Soln (100units/ml) SC SCH ×4 (06:50→21:43)
[2022-02-12] MEDS: ACCU-CHEK COMFORT CURVE STRIP VI SCH ×4 (06:51→21:41)
[2022-02-12 08:57] VITALS: BP 123/47
[2022-02-12] MEDS: LOSARTAN POTASSIUM 50 MG TAB PO SCH (09:38)
[2022-02-12] MEDS: HCTZ 25 MG TAB PO SCH (09:38)
[2022-02-12] MEDS: CEFTRIAXONE SODIUM 2 GM in D5W 5% 50 ML IV SCH (09:38)
[2022-02-12] MEDS: DAKINS QUARTER STR 0.125% (NaHypochlorite) 473 ML TOPICAL SOL TOP SCH ×2 (09:39→21:41)
[2022-02-12] MEDS: CLOPIDOGREL BISULFATE 75 MG TAB PO SCH (09:39)
[2022-02-12] MEDS: Pro-Stat SF 30ml Vanilla PO SCH (09:39)
[2022-02-12] MEDS: amLODIPine BESYLATE 5 MG TAB PO SCH (09:39)
[2022-02-12 12:42] VITALS: BP 128/40
[2022-02-12 16:54] VITALS: BP 127/73
[2022-02-12] MEDS: MORPHINE SULFATE INJ 2 MG/ml SYRG IV PRN (18:49)
[2022-02-12] MEDS: ATORVASTATIN 20 MG TAB PO SCH (21:38)
[2022-02-12] MEDS: HYDROcodone-ACET 5/325MG TAB PO PRN (21:47)
[2022-02-12 22:00] VITALS: BP 146/45
[2022-02-13] MEDS: HYDROcodone-ACET 5/325MG TAB PO PRN ×2 (02:10→22:15)
[2022-02-13 05:00] VITALS: BP 109/45
[2022-02-13 05:11] LABS: Basophils # (auto) 0 10 ^3/uL (0-0.2); Basophils % (auto) 0.5 % (0.0-2.0); Eosinophils # (auto) 0.2 10 ^3/uL (0-0.8); Eosinophils % (auto) 2.1 % (0.0-7.0); Hematocrit 27.7 % (36.0-46.0); Hemoglobin 9.4 g/dL (12.2-16.2); Lymphocytes # (auto) 2.2 10 ^3/uL (0.4-5.4); Lymphocytes % (auto) 21.8 % (10.0-50.0); Mean Corpuscular Hemoglobin 27.7 pg (28.0-32.0); Mean Corpuscular Hgb Conc. 34.1 g/dL (32.0-36.0); Mean Corpuscular Volume 81.2 fL (80.0-100.0); Monocytes # (auto) 1.1 10 ^3/uL (0-1.3); Neutrophils # (auto) 6.5 10 ^3/uL (1.6-8.6); Neutrophils % (auto) 64.6 % (37.0-80.0); Red Blood Cells 3.42 10^6/uL (4.0-5.20); Red Cell Distribution Width 13.7 % (11.8-14.3)
[2022-02-13] MEDS: metroNIDAZOLE 500 MG TAB PO SCH ×3 (05:24→22:16)
[2022-02-13 05:27] LABS: Calcium 8.1 mg/dL (8.5-10.1); Potassium 3.7 mmol/L (3.5-5.1)
[2022-02-13] MEDS: ACCU-CHEK COMFORT CURVE STRIP VI SCH ×4 (06:43→22:14)
[2022-02-13] MEDS: InsuLIN REG 1unit/0.01ml Soln (100units/ml) SC SCH ×4 (06:43→22:16)
[2022-02-13 09:00] VITALS: BP 141/34
[2022-02-13] MEDS: HCTZ 25 MG TAB PO SCH (09:58)
[2022-02-13] MEDS: LOSARTAN POTASSIUM 50 MG TAB PO SCH (09:59)
[2022-02-13] MEDS: CEFTRIAXONE SODIUM 2 GM in D5W 5% 50 ML IV SCH (09:59)
[2022-02-13] MEDS: DAKINS QUARTER STR 0.125% (NaHypochlorite) 473 ML TOPICAL SOL TOP SCH ×2 (10:01→23:00)
[2022-02-13] MEDS: amLODIPine BESYLATE 5 MG TAB PO SCH (10:01)
[2022-02-13] MEDS: CLOPIDOGREL BISULFATE 75 MG TAB PO SCH (10:01)
[2022-02-13] MEDS: Pro-Stat SF 30ml Vanilla PO SCH (10:01)
[2022-02-13 13:00] VITALS: BP 136/27
[2022-02-13 17:00] VITALS: BP 132/54
[2022-02-13 22:00] VITALS: BP 157/43
[2022-02-13] MEDS: ATORVASTATIN 20 MG TAB PO SCH (22:14)
[2022-02-14] MEDS: HYDROcodone-ACET 5/325MG TAB PO PRN ×4 (04:20→23:44)
[2022-02-14 05:00] VITALS: BP 151/47
[2022-02-14 06:16] LABS: BUN/Creatinine Ratio 24.6; Calcium 8.5 mg/dL (8.5-10.1); Potassium 4.3 mmol/L (3.5-5.1)
[2022-02-14] MEDS: metroNIDAZOLE 500 MG TAB PO SCH ×3 (06:33→21:37)
[2022-02-14] MEDS: ACCU-CHEK COMFORT CURVE STRIP VI SCH ×4 (06:33→21:37)
[2022-02-14] MEDS: InsuLIN REG 1unit/0.01ml Soln (100units/ml) SC SCH ×4 (06:33→21:46)
[2022-02-14 06:42] LABS: Basophils # (auto) 0 10 ^3/uL (0-0.2); Basophils % (auto) 0.5 % (0.0-2.0); Eosinophils # (auto) 0.2 10 ^3/uL (0-0.8); Eosinophils % (auto) 1.7 % (0.0-7.0); Hemoglobin 9.6 g/dL (12.2-16.2); Lymphocytes # (auto) 2.3 10 ^3/uL (0.4-5.4); Lymphocytes % (auto) 22.7 % (10.0-50.0); Mean Corpuscular Volume 81.7 fL (80.0-100.0); Monocytes % (auto) 10.2 % (0.0-12.0); Neutrophils # (auto) 6.6 10 ^3/uL (1.6-8.6); Neutrophils % (auto) 64.9 % (37.0-80.0); Nucleated Red Blood Cells % 0.1 %; Red Blood Cells 3.55 10^6/uL (4.0-5.20); Red Cell Distribution Width 13.9 % (11.8-14.3); White Blood Cell 10.2 10^3/uL (4.4-10.8)
[2022-02-14 09:00] VITALS: BP 134/44
[2022-02-14] MEDS: HCTZ 25 MG TAB PO SCH (10:53)
[2022-02-14] MEDS: LOSARTAN POTASSIUM 50 MG TAB PO SCH (10:53)
[2022-02-14] MEDS: amLODIPine BESYLATE 5 MG TAB PO SCH (10:54)
[2022-02-14] MEDS: CLOPIDOGREL BISULFATE 75 MG TAB PO SCH (10:54)
[2022-02-14] MEDS: CEFTRIAXONE SODIUM 2 GM in D5W 5% 50 ML IV SCH (10:56)
[2022-02-14] MEDS: Pro-Stat SF 30ml Vanilla PO SCH (11:40)
[2022-02-14 13:00] VITALS: BP 131/42
[2022-02-14] MEDS: DAKINS QUARTER STR 0.125% (NaHypochlorite) 473 ML TOPICAL SOL TOP SCH ×2 (17:41→21:37)
[2022-02-14] MEDS: ATORVASTATIN 20 MG TAB PO SCH (21:37)
[2022-02-14 21:41] VITALS: BP 142/50
[2022-02-15] MEDS: MORPHINE SULFATE INJ 2 MG/ml SYRG IV PRN (01:33)
[2022-02-15 05:00] VITALS: BP 121/51
[2022-02-15] MEDS: metroNIDAZOLE 500 MG TAB PO SCH ×3 (05:53→22:34)
[2022-02-15] MEDS: HYDROcodone-ACET 5/325MG TAB PO PRN ×2 (05:54→17:48)
[2022-02-15 05:56] LABS: Basophils # (auto) 0.1 10 ^3/uL (0-0.2); Basophils % (auto) 0.8 % (0.0-2.0); Eosinophils # (auto) 0.2 10 ^3/uL (0-0.8); Eosinophils % (auto) 2.1 % (0.0-7.0); Hematocrit 27.8 % (36.0-46.0); Hemoglobin 9.2 g/dL (12.2-16.2); Lymphocytes # (auto) 2.1 10 ^3/uL (0.4-5.4); Lymphocytes % (auto) 21.2 % (10.0-50.0); Mean Corpuscular Hemoglobin 27.1 pg (28.0-32.0); Mean Corpuscular Hgb Conc. 33.2 g/dL (32.0-36.0); Mean Corpuscular Volume 81.8 fL (80.0-100.0); Monocytes # (auto) 0.9 10 ^3/uL (0-1.3); Neutrophils # (auto) 6.6 10 ^3/uL (1.6-8.6); Neutrophils % (auto) 66.9 % (37.0-80.0); Nucleated Red Blood Cells % 0.1 %; Red Blood Cells 3.39 10^6/uL (4.0-5.20); Red Cell Distribution Width 13.7 % (11.8-14.3); White Blood Cell 9.8 10^3/uL (4.4-10.8)
[2022-02-15 06:10] LABS: Calcium 8.2 mg/dL (8.5-10.1); Potassium 3.6 mmol/L (3.5-5.1)
[2022-02-15 06:13] LABS: BUN/Creatinine Ratio 21.9
[2022-02-15] MEDS: DAKINS QUARTER STR 0.125% (NaHypochlorite) 473 ML TOPICAL SOL TOP SCH ×2 (06:30→22:00)
[2022-02-15] MEDS: ACCU-CHEK COMFORT CURVE STRIP VI SCH ×4 (06:55→22:39)
[2022-02-15] MEDS: InsuLIN REG 1unit/0.01ml Soln (100units/ml) SC SCH ×4 (06:55→22:43)
[2022-02-15 09:20] VITALS: BP 132/48
[2022-02-15] MEDS: Pro-Stat SF 30ml Vanilla PO SCH (10:00)
[2022-02-15] MEDS: ONDANSETRON HCL 4 MG/2 ML VIAL IV PRN (11:01)
[2022-02-15] MEDS: CEFTRIAXONE SODIUM 2 GM in D5W 5% 50 ML IV SCH (11:02)
[2022-02-15] MEDS: HCTZ 25 MG TAB PO SCH (11:03)
[2022-02-15] MEDS: CLOPIDOGREL BISULFATE 75 MG TAB PO SCH (11:03)
[2022-02-15] MEDS: LOSARTAN POTASSIUM 50 MG TAB PO SCH (11:03)
[2022-02-15] MEDS: amLODIPine BESYLATE 5 MG TAB PO SCH (11:04)
[2022-02-15 13:16] VITALS: BP 141/48
[2022-02-15 16:48] VITALS: BP 132/40
[2022-02-15 22:01] VITALS: BP 145/46
[2022-02-15] MEDS: ATORVASTATIN 20 MG TAB PO SCH (22:35)
[2022-02-16] MEDS: metroNIDAZOLE 500 MG TAB PO SCH ×3 (05:44→22:43)
[2022-02-16] MEDS: HYDROcodone-ACET 5/325MG TAB PO PRN (05:45)
[2022-02-16 06:14] VITALS: BP 155/55
[2022-02-16] MEDS: ACCU-CHEK COMFORT CURVE STRIP VI SCH ×4 (06:56→22:47)
[2022-02-16] MEDS: InsuLIN REG 1unit/0.01ml Soln (100units/ml) SC SCH ×4 (06:57→22:56)
[2022-02-16] MEDS: DAKINS QUARTER STR 0.125% (NaHypochlorite) 473 ML TOPICAL SOL TOP SCH ×2 (06:59→22:57)
[2022-02-16 07:30] VITALS: BP 132/48
[2022-02-16 09:00] VITALS: BP 122/44
[2022-02-16] MEDS: CEFTRIAXONE SODIUM 2 GM in D5W 5% 50 ML IV SCH (10:12)
[2022-02-16] MEDS: CLOPIDOGREL BISULFATE 75 MG TAB PO SCH (10:13)
[2022-02-16] MEDS: HCTZ 25 MG TAB PO SCH (10:13)
[2022-02-16] MEDS: LOSARTAN POTASSIUM 50 MG TAB PO SCH (10:13)
[2022-02-16] MEDS: amLODIPine BESYLATE 5 MG TAB PO SCH (10:14)
[2022-02-16] MEDS: Pro-Stat SF 30ml Vanilla PO SCH (10:14)
[2022-02-16 13:00] VITALS: BP 133/49
[2022-02-16 17:00] VITALS: BP 142/43
[2022-02-16 22:00] VITALS: BP 131/48
[2022-02-16] MEDS: ATORVASTATIN 20 MG TAB PO SCH (22:42)
[2022-02-17] MEDS: HYDROcodone-ACET 5/325MG TAB PO PRN (00:08)
[2022-02-17 05:00] VITALS: BP 138/48
[2022-02-17] MEDS: metroNIDAZOLE 500 MG TAB PO SCH ×3 (05:56→21:27)
[2022-02-17] MEDS: ACCU-CHEK COMFORT CURVE STRIP VI SCH ×4 (05:56→21:15)
[2022-02-17] MEDS: InsuLIN REG 1unit/0.01ml Soln (100units/ml) SC SCH ×4 (06:03→21:18)
[2022-02-17] MEDS: ACETAMINOPHEN 325 MG TAB PO PRN (06:04)
[2022-02-17 08:00] VITALS: BP 108/30
[2022-02-17 09:00] VITALS: BP 107/40
[2022-02-17] MEDS: LOSARTAN POTASSIUM 50 MG TAB PO SCH (10:00)
[2022-02-17] MEDS: HCTZ 25 MG TAB PO SCH (10:00)
[2022-02-17] MEDS: amLODIPine BESYLATE 5 MG TAB PO SCH (10:00)
[2022-02-17] MEDS: CEFTRIAXONE SODIUM 2 GM in D5W 5% 50 ML IV SCH (11:35)
[2022-02-17] MEDS: CLOPIDOGREL BISULFATE 75 MG TAB PO SCH (11:35)
[2022-02-17] MEDS: Pro-Stat SF 30ml Vanilla PO SCH (11:35)
[2022-02-17] MEDS: DAKINS QUARTER STR 0.125% (NaHypochlorite) 473 ML TOPICAL SOL TOP SCH ×2 (11:36→21:29)
[2022-02-17 13:00] VITALS: BP 129/41
[2022-02-17 17:12] VITALS: BP 148/48
[2022-02-17] MEDS: ATORVASTATIN 20 MG TAB PO SCH (21:28)
[2022-02-17 22:00] VITALS: BP 141/39
[2022-02-18 04:30] VITALS: BP 148/51
[2022-02-18] MEDS: metroNIDAZOLE 500 MG TAB PO SCH ×3 (05:35→22:17)
[2022-02-18] MEDS: ACCU-CHEK COMFORT CURVE STRIP VI SCH ×4 (06:04→22:13)
[2022-02-18] MEDS: InsuLIN REG 1unit/0.01ml Soln (100units/ml) SC SCH ×4 (06:05→22:16)
[2022-02-18 06:20] LABS: Basophils # (auto) 0 10 ^3/uL (0-0.2); Basophils % (auto) 0.4 % (0.0-2.0); Eosinophils # (auto) 0.1 10 ^3/uL (0-0.8); Hemoglobin 9.8 g/dL (12.2-16.2)
[2022-02-18 06:23] LABS: Eosinophils % (auto) 1.1 % (0.0-7.0); Hematocrit 28.8 % (36.0-46.0); Mean Corpuscular Hemoglobin 28.1 pg (28.0-32.0); Mean Corpuscular Hgb Conc. 34.2 g/dL (32.0-36.0); Mean Corpuscular Volume 82.3 fL (80.0-100.0); Monocytes % (auto) 9.3 % (0.0-12.0); Neutrophils # (auto) 7.1 10 ^3/uL (1.6-8.6); Neutrophils % (auto) 69.2 % (37.0-80.0); Red Cell Distribution Width 14.1 % (11.8-14.3); White Blood Cell 10.2 10^3/uL (4.4-10.8)
[2022-02-18 06:27] LABS: BUN/Creatinine Ratio 20.7; Calcium 8.4 mg/dL (8.5-10.1); Potassium 3.9 mmol/L (3.5-5.1)
[2022-02-18] MEDS: CEFTRIAXONE SODIUM 2 GM in D5W 5% 50 ML IV SCH (08:57)
[2022-02-18] MEDS: LOSARTAN POTASSIUM 50 MG TAB PO SCH (08:58)
[2022-02-18 09:00] VITALS: BP 116/57
[2022-02-18] MEDS: CLOPIDOGREL BISULFATE 75 MG TAB PO SCH (09:01)
[2022-02-18] MEDS: HCTZ 25 MG TAB PO SCH (09:01)
[2022-02-18] MEDS: amLODIPine BESYLATE 5 MG TAB PO SCH (09:02)
[2022-02-18] MEDS: Pro-Stat SF 30ml Vanilla PO SCH (10:00)
[2022-02-18 13:00] VITALS: BP 116/39
[2022-02-18 17:00] VITALS: BP 144/40
[2022-02-18] MEDS: ACETAMINOPHEN 325 MG TAB PO PRN (17:13)
[2022-02-18] MEDS: DAKINS QUARTER STR 0.125% (NaHypochlorite) 473 ML TOPICAL SOL TOP SCH ×2 (19:30→22:22)
[2022-02-18 22:00] VITALS: BP 126/47
[2022-02-18] MEDS: ATORVASTATIN 20 MG TAB PO SCH (22:17)
[2022-02-18] MEDS: RIVAROXABAN 10 MG TAB PO SCH (22:17)
[2022-02-19 05:00] VITALS: BP 144/42
[2022-02-19] MEDS: metroNIDAZOLE 500 MG TAB PO SCH ×3 (06:08→22:09)
[2022-02-19] MEDS: ACCU-CHEK COMFORT CURVE STRIP VI SCH ×4 (06:14→22:10)
[2022-02-19] MEDS: InsuLIN REG 1unit/0.01ml Soln (100units/ml) SC SCH ×4 (06:16→22:06)
[2022-02-19 08:30] VITALS: BP 122/43
[2022-02-19] MEDS: Pro-Stat SF 30ml Vanilla PO SCH (10:00)
[2022-02-19] MEDS: CLOPIDOGREL BISULFATE 75 MG TAB PO SCH (10:00)
[2022-02-19] MEDS: RIVAROXABAN 10 MG TAB PO SCH ×2 (10:00→22:08)
[2022-02-19] MEDS ORDERED: MET500T PO (10:07)
[2022-02-19 12:25] VITALS: BP 154/55
[2022-02-19] MEDS: LOSARTAN POTASSIUM 50 MG TAB PO SCH (13:56)
[2022-02-19] MEDS: HCTZ 25 MG TAB PO SCH (13:57)
[2022-02-19] MEDS: amLODIPine BESYLATE 5 MG TAB PO SCH (13:58)
[2022-02-19 16:15] VITALS: BP 153/42
[2022-02-19] MEDS: CEFTRIAXONE SODIUM 2 GM in D5W 5% 50 ML IV SCH (20:39)
[2022-02-19] MEDS: DAKINS QUARTER STR 0.125% (NaHypochlorite) 473 ML TOPICAL SOL TOP SCH ×2 (20:47→22:09)
[2022-02-19 22:00] VITALS: BP 123/43
[2022-02-19] MEDS: ATORVASTATIN 20 MG TAB PO SCH (22:09)
[2022-02-20 05:00] VITALS: BP 119/42
[2022-02-20] MEDS: ACCU-CHEK COMFORT CURVE STRIP VI SCH ×4 (06:25→21:33)
[2022-02-20] MEDS: InsuLIN REG 1unit/0.01ml Soln (100units/ml) SC SCH ×4 (06:25→21:32)
[2022-02-20] MEDS: metroNIDAZOLE 500 MG TAB PO SCH ×3 (06:29→21:31)
[2022-02-20] MEDS: ONDANSETRON HCL 4 MG/2 ML VIAL IV PRN ×2 (08:28→16:27)
[2022-02-20] MEDS: MORPHINE SULFATE INJ 2 MG/ml SYRG IV PRN ×2 (08:28→16:28)
[2022-02-20 09:25] VITALS: BP 138/49
[2022-02-20] MEDS: CEFTRIAXONE SODIUM 2 GM in D5W 5% 50 ML IV SCH (10:00)
[2022-02-20] MEDS: Pro-Stat SF 30ml Vanilla PO SCH (10:00)
[2022-02-20] MEDS: RIVAROXABAN 10 MG TAB PO SCH ×2 (10:00→21:31)
[2022-02-20] MEDS: LOSARTAN POTASSIUM 50 MG TAB PO SCH (10:00)
[2022-02-20] MEDS: CLOPIDOGREL BISULFATE 75 MG TAB PO SCH (10:00)
[2022-02-20] MEDS: HCTZ 25 MG TAB PO SCH (10:00)
[2022-02-20] MEDS: DAKINS QUARTER STR 0.125% (NaHypochlorite) 473 ML TOPICAL SOL TOP SCH ×2 (10:00→22:00)
[2022-02-20] MEDS: amLODIPine BESYLATE 5 MG TAB PO SCH (10:00)
[2022-02-20] MEDS ORDERED: POVIDONE IODINE 10 % TOPICAL OINT 30GM TOP ONE (12:04)
[2022-02-20] MEDS ORDERED: ceFAZolin 1GM/50ML 100 ML IV ONE (12:09)
[2022-02-20] MEDS ORDERED: fentaNYL CITRATE 100 MCG/2 ML VL ONE (12:46)
[2022-02-20] MEDS ORDERED: MEPERIDINE HCL (50 MG/ML) 1 ML VIAL ONE (12:47)
[2022-02-20] MEDS ORDERED: MIDAZOLAM HCL 2MG/2ML 2ml VIAL (1mg/ml) ONE (12:47)
[2022-02-20 12:55] VITALS: BP 121/46
[2022-02-20] MEDS ORDERED: MORPHINE SULFATE 4 MG/ML SYR/VIAL IV PRN ×2 (13:15→15:10)
[2022-02-20] MEDS ORDERED: ePHEDrine SULFATE 50 MG/ML AMP IV PRN (13:15)
[2022-02-20] MEDS ORDERED: ACCU-CHEK COMFORT CURVE STRIP VI ONE (13:15)
[2022-02-20] MEDS ORDERED: HYDROmorphone HCL 2 MG/ML VL/or syr IV PRN (13:15)
[2022-02-20] MEDS ORDERED: LABETALOL HCL 5 MG/ML 4ML SYRINGE IV PRN (13:15)
[2022-02-20] MEDS ORDERED: MIDAZOLAM HCL 2MG/2ML 2ml VIAL (1mg/ml) IV PRN (13:15)
[2022-02-20] MEDS ORDERED: ONDANSETRON HCL 4 MG/2 ML VIAL IV PRN (13:15)
[2022-02-20] MEDS ORDERED: DexAMETHasone SOD PHOS 10MG/1ML VIAL INJ ONE (13:18)
[2022-02-20] MEDS ORDERED: ONDANSETRON HCL 4 MG/2 ML VIAL ONE (13:23)
[2022-02-20] MEDS ORDERED: PROPOFOL 10 MG/ML 20 ML IV ONE (13:23)
[2022-02-20 16:18] VITALS: BP 141/55
[2022-02-20] MEDS: ATORVASTATIN 20 MG TAB PO SCH (21:31)
[2022-02-20 22:00] VITALS: BP_SYST 134
[2022-02-21 05:00] VITALS: BP 133/49
[2022-02-21] MEDS: metroNIDAZOLE 500 MG TAB PO SCH (06:27)
[2022-02-21] MEDS: InsuLIN REG 1unit/0.01ml Soln (100units/ml) SC SCH ×4 (06:27→21:16)
[2022-02-21] MEDS: ACCU-CHEK COMFORT CURVE STRIP VI SCH ×4 (06:27→21:09)
[2022-02-21 06:31] LABS: Calcium 8.2 mg/dL (8.5-10.1); Potassium 4.4 mmol/L (3.5-5.1)
[2022-02-21 06:56] LABS: Basophils # (auto) 0 10 ^3/uL (0-0.2); Eosinophils # (auto) 0 10 ^3/uL (0-0.8); Hematocrit 25.3 % (36.0-46.0); Hemoglobin 8.6 g/dL (12.2-16.2); Lymphocytes % (auto) 9.2 % (10.0-50.0); Mean Corpuscular Hgb Conc. 33.8 g/dL (32.0-36.0); Mean Corpuscular Volume 82.8 fL (80.0-100.0); Monocytes # (auto) 0.4 10 ^3/uL (0-1.3); Monocytes % (auto) 3.5 % (0.0-12.0); Neutrophils # (auto) 9.6 10 ^3/uL (1.6-8.6); Neutrophils % (auto) 87.3 % (37.0-80.0); Red Blood Cells 3.05 10^6/uL (4.0-5.20); White Blood Cell 10.9 10^3/uL (4.4-10.8)
[2022-02-21 09:00] VITALS: BP 135/27
[2022-02-21] MEDS: DAKINS QUARTER STR 0.125% (NaHypochlorite) 473 ML TOPICAL SOL TOP SCH ×2 (10:00→21:16)
[2022-02-21] MEDS: CEFTRIAXONE SODIUM 2 GM in D5W 5% 50 ML IV SCH (11:00)
[2022-02-21] MEDS: amLODIPine BESYLATE 5 MG TAB PO SCH (11:00)
[2022-02-21] MEDS: LOSARTAN POTASSIUM 50 MG TAB PO SCH (11:01)
[2022-02-21] MEDS: CLOPIDOGREL BISULFATE 75 MG TAB PO SCH (11:02)
[2022-02-21] MEDS: HCTZ 25 MG TAB PO SCH (11:02)
[2022-02-21] MEDS: RIVAROXABAN 10 MG TAB PO SCH ×2 (11:03→21:09)
[2022-02-21] MEDS: MORPHINE SULFATE INJ 2 MG/ml SYRG IV PRN ×2 (11:04→21:06)
[2022-02-21] MEDS: Pro-Stat SF 30ml Vanilla PO SCH (11:09)
[2022-02-21 13:00] VITALS: BP 143/103
[2022-02-21 16:55] VITALS: BP 149/45
[2022-02-21] MEDS: ATORVASTATIN 20 MG TAB PO SCH (21:08)
[2022-02-21] MEDS: ACETAMINOPHEN 325 MG TAB PO PRN (21:44)
[2022-02-21 22:00] VITALS: BP 154/31
[2022-02-21] MEDS ORDERED: SOD CHL 0.45% 500 ML IV ONE (23:15)
[2022-02-21] MEDS ORDERED: IBUPROFEN 600 MG TAB PO ONE (23:15)
[2022-02-22 00:12] LABS: Basophils # (auto) 0.1 10 ^3/uL (0-0.2); Basophils % (auto) 0.3 % (0.0-2.0); Eosinophils # (auto) 0.6 10 ^3/uL (0-0.8); Eosinophils % (auto) 2.5 % (0.0-7.0); Hemoglobin 8.9 g/dL (12.2-16.2); Lymphocytes # (auto) 1.5 10 ^3/uL (0.4-5.4); Lymphocytes % (auto) 6.3 % (10.0-50.0); Mean Corpuscular Hgb Conc. 34.4 g/dL (32.0-36.0); Mean Corpuscular Volume 84.4 fL (80.0-100.0); Monocytes # (auto) 0.5 10 ^3/uL (0-1.3); Monocytes % (auto) 2.2 % (0.0-12.0); Neutrophils # (auto) 21.2 10 ^3/uL (1.6-8.6); Neutrophils % (auto) 88.7 % (37.0-80.0); Nucleated Red Blood Cells % 0.1 %; Red Blood Cells 3.08 10^6/uL (4.0-5.20); White Blood Cell 23.9 10^3/uL (4.4-10.8)
[2022-02-22 00:34] LABS: BUN/Creatinine Ratio 24.7; Calcium 8.1 mg/dL (8.5-10.1)
[2022-02-22] MEDS: MORPHINE SULFATE INJ 2 MG/ml SYRG IV PRN (02:34)
[2022-02-22 05:00] VITALS: BP 105/34
[2022-02-22] MEDS: ACCU-CHEK COMFORT CURVE STRIP VI SCH ×4 (06:20→20:48)
[2022-02-22] MEDS: InsuLIN REG 1unit/0.01ml Soln (100units/ml) SC SCH ×4 (06:22→20:52)
[2022-02-22 06:28] LABS: Basophils # (auto) 0 10 ^3/uL (0-0.2); Eosinophils # (auto) 0 10 ^3/uL (0-0.8); Hematocrit 24.1 % (36.0-46.0); Hemoglobin 8.2 g/dL (12.2-16.2); Mean Corpuscular Hemoglobin 28.8 pg (28.0-32.0); Mean Corpuscular Hgb Conc. 34.1 g/dL (32.0-36.0); Monocytes # (auto) 0.6 10 ^3/uL (0-1.3); Red Cell Distribution Width 14.3 % (11.8-14.3)
[2022-02-22 06:30] LABS: Basophils % (auto) 0.3 % (0.0-2.0); Lymphocytes % (auto) 6.5 % (10.0-50.0); Mean Corpuscular Volume 84.3 fL (80.0-100.0); Monocytes % (auto) 4.1 % (0.0-12.0); Neutrophils # (auto) 13.5 10 ^3/uL (1.6-8.6); Neutrophils % (auto) 89.1 % (37.0-80.0); Red Blood Cells 2.86 10^6/uL (4.0-5.20); White Blood Cell 15.2 10^3/uL (4.4-10.8)
[2022-02-22 06:43] LABS: BUN/Creatinine Ratio 28.9; Calcium 7.5 mg/dL (8.5-10.1); Potassium 4.2 mmol/L (3.5-5.1)
[2022-02-22 08:00] VITALS: BP 135/75
[2022-02-22 09:00] VITALS: BP 105/43
[2022-02-22] MEDS: CEFTRIAXONE SODIUM 2 GM in D5W 5% 50 ML IV SCH (09:19)
[2022-02-22] MEDS: LOSARTAN POTASSIUM 50 MG TAB PO SCH (10:00)
[2022-02-22] MEDS: Pro-Stat SF 30ml Vanilla PO SCH (10:00)
[2022-02-22] MEDS ORDERED: SODIUM CHLORIDE 0.9% 500 ML IV ONE (10:00)
[2022-02-22] MEDS: HCTZ 25 MG TAB PO SCH (10:00)
[2022-02-22] MEDS: RIVAROXABAN 10 MG TAB PO SCH ×2 (10:00→20:41)
[2022-02-22] MEDS: CLOPIDOGREL BISULFATE 75 MG TAB PO SCH (10:00)
[2022-02-22] MEDS: amLODIPine BESYLATE 5 MG TAB PO SCH (10:00)
[2022-02-22] MEDS: DAKINS QUARTER STR 0.125% (NaHypochlorite) 473 ML TOPICAL SOL TOP SCH ×2 (10:00→20:48)
[2022-02-22] MEDS: ACETAMINOPHEN 325 MG TAB PO PRN ×2 (12:44→20:41)
[2022-02-22 13:00] VITALS: BP 159/50
[2022-02-22] MEDS: metroNIDAZOLE 500 MG TAB PO SCH ×2 (14:40→20:41)
[2022-02-22 17:07] VITALS: BP 137/24
[2022-02-22] MEDS: ATORVASTATIN 20 MG TAB PO SCH (20:41)
[2022-02-22 22:00] VITALS: BP 137/50
[2022-02-23 05:00] VITALS: BP 132/47
[2022-02-23] MEDS: metroNIDAZOLE 500 MG TAB PO SCH ×3 (05:30→23:14)
[2022-02-23] MEDS: ACCU-CHEK COMFORT CURVE STRIP VI SCH ×4 (06:18→22:00)
[2022-02-23] MEDS: InsuLIN REG 1unit/0.01ml Soln (100units/ml) SC SCH ×4 (06:18→23:16)
[2022-02-23 09:00] VITALS: BP 166/53
[2022-02-23] MEDS ORDERED: LACTULOSE 20Gm/30ML SOLN PO ONE (10:30)
[2022-02-23] MEDS: CEFTRIAXONE SODIUM 2 GM in D5W 5% 50 ML IV SCH (10:49)
[2022-02-23] MEDS: amLODIPine BESYLATE 5 MG TAB PO SCH (10:50)
[2022-02-23] MEDS: LOSARTAN POTASSIUM 50 MG TAB PO SCH (10:50)
[2022-02-23] MEDS: Pro-Stat SF 30ml Vanilla PO SCH (10:51)
[2022-02-23] MEDS: CLOPIDOGREL BISULFATE 75 MG TAB PO SCH (10:51)
[2022-02-23] MEDS: RIVAROXABAN 10 MG TAB PO SCH ×2 (10:51→23:14)
[2022-02-23] MEDS: HCTZ 25 MG TAB PO SCH (10:51)
[2022-02-23 11:41] VITALS: BP 153/58
[2022-02-23 17:00] VITALS: BP 125/51
[2022-02-23 22:00] VITALS: BP 122/63
[2022-02-23] MEDS: ATORVASTATIN 20 MG TAB PO SCH (23:13)
[2022-02-23] MEDS: ACETAMINOPHEN 325 MG TAB PO PRN (23:13)
[2022-02-23] MEDS: MORPHINE SULFATE INJ 2 MG/ml SYRG IV PRN (23:28)
[2022-02-24 05:00] VITALS: BP 140/52
[2022-02-24] MEDS: metroNIDAZOLE 500 MG TAB PO SCH ×2 (06:47→15:38)
[2022-02-24] MEDS: InsuLIN REG 1unit/0.01ml Soln (100units/ml) SC SCH ×2 (06:48→11:56)
[2022-02-24] MEDS: ACCU-CHEK COMFORT CURVE STRIP VI SCH ×2 (06:48→11:55)
[2022-02-24 08:00] VITALS: BP 133/59
[2022-02-24] MEDS ORDERED: LACTULOSE 20Gm/30ML SOLN PO SCH (10:00)
[2022-02-24] MEDS: amLODIPine BESYLATE 5 MG TAB PO SCH (10:10)
[2022-02-24] MEDS: CLOPIDOGREL BISULFATE 75 MG TAB PO SCH (10:10)
[2022-02-24] MEDS: HCTZ 25 MG TAB PO SCH (10:10)
[2022-02-24] MEDS: Pro-Stat SF 30ml Vanilla PO SCH (10:11)
[2022-02-24] MEDS: LOSARTAN POTASSIUM 50 MG TAB PO SCH (10:12)
[2022-02-24] MEDS: CEFTRIAXONE SODIUM 2 GM in D5W 5% 50 ML IV SCH (11:03)
[2022-02-24 12:00] VITALS: BP 134/50
[2022-02-24] MEDS: RIVAROXABAN 10 MG TAB PO SCH (12:16)
[2022-02-24 16:00] VITALS: BP 112/54
== END 2022-02-24 17:00 | DRG 305 ==
LOC: ER 21:02 → OVERFLOW 02-06 06:19 → CENTRAL 02-06 16:33 → EAST 02-23 17:34
PROVIDERS: ADMIT Nurse Practitioner; ATTEND Internal Medicine Pulmonary Disease
PROC: 30233N1 Transfusion of Nonautologous Red Blood Cells into Peripheral Vein, Percutaneous Approach (ICD-10-PCS; 2022-02-06)
PROC: 0QBM0ZZ Excision of Left Tarsal, Open Approach (ICD-10-PCS; 2022-02-07)
PROC: BQ1MZZZ Fluoroscopy of Left Foot (ICD-10-PCS; 2022-02-07)
PROC: 05HC33Z Insertion of Infusion Device into Left Basilic Vein, Percutaneous Approach (ICD-10-PCS; 2022-02-19)
PROC: B54NZZA Ultrasonography of Left Upper Extremity Veins, Guidance (ICD-10-PCS; 2022-02-19)
PROC: 0Y6J0Z1 Detachment at Left Lower Leg, High, Open Approach (ICD-10-PCS; principal; 2022-02-20 12:50)
DX: E11.621 Type 2 diabetes mellitus with foot ulcer (principal); A48.0 Gas gangrene; E11.52 Type 2 diabetes mellitus with diabetic peripheral angiopathy with gangrene; E11.21 Type 2 diabetes mellitus with diabetic nephropathy; N39.0 Urinary tract infection, site not specified; B96.20 Unspecified Escherichia coli [E. coli] as the cause of diseases classified elsewhere; L97.429 Non-pressure chronic ulcer of left heel and midfoot with unspecified severity; M86.8X7 Other osteomyelitis, ankle and foot; E11.40 Type 2 diabetes mellitus with diabetic neuropathy, unspecified; I10 Essential (primary) hypertension; I44.7 Left bundle-branch block, unspecified; E11.65 Type 2 diabetes mellitus with hyperglycemia; E11.69 Type 2 diabetes mellitus with other specified complication; J43.9 Emphysema, unspecified; B96.4 Proteus (mirabilis) (morganii) as the cause of diseases classified elsewhere; L08.9 Local infection of the skin and subcutaneous tissue, unspecified; Z88.1 Allergy status to other antibiotic agents; Z79.4 Long term (current) use of insulin
CPT/HCPCS: 36415; 36430; 71045; 73650; 73700; 76000; 80048; 80053; 80307; 81001; 82962; 83605; 85025; 85610; 85730; 86850; 86900; 86901; 86920; 87040; 87070; 87075; 87076; 87077; 87086; 87186; 87205; 93306; 93925; 96365; 96367; 96375; 97110; 97116; 97163; 97530; G0378; J0690; J0696; J1100; J1815; J2001; J2250; J2405; J2543; J2704; J3490; J7060

== ENCOUNTER 2022-03-08 16:07 | Inpatient (IN) | payer MEDICAID ==
[~2022-03-08] VITALS: Ht 167.6 cm; Wt 64.4 kg
[~2022-03-08 16:07] MED LIST changes: -LEVO750T64 PO; -LOSA-39 PO; +MET500T PO
[2022-03-08] MEDS ORDERED: SODIUM CHLORIDE 0.9% 1,000 ML IV ONE (16:45)
[2022-03-08 17:37] LABS: Basophils # (auto) 0.1 10 ^3/uL (0-0.2); Basophils % (auto) 0.8 % (0.0-2.0); Eosinophils # (auto) 0.1 10 ^3/uL (0-0.8); Eosinophils % (auto) 0.8 % (0.0-7.0); Lymphocytes # (auto) 1.8 10 ^3/uL (0.4-5.4); Lymphocytes % (auto) 23.7 % (10.0-50.0); Mean Corpuscular Hemoglobin 27.3 pg (28.0-32.0); Mean Corpuscular Volume 85.3 fL (80.0-100.0); Monocytes # (auto) 0.5 10 ^3/uL (0-1.3); Monocytes % (auto) 6.3 % (0.0-12.0); Neutrophils # (auto) 5.3 10 ^3/uL (1.6-8.6); Neutrophils % (auto) 68.4 % (37.0-80.0); Nucleated Red Blood Cells % 0.1 %; Red Blood Cells 3.29 10^6/uL (4.0-5.20); Red Cell Distribution Width 17.2 % (11.8-14.3); White Blood Cell 7.7 10^3/uL (4.4-10.8)
[2022-03-08 17:38] LABS: Alanine Aminotransferase 10 U/L (13-56); Albumin 2.3 g/dL (3.4-5.0); Anion Gap 12 (5-15); Aspartate Aminotransferase 6 U/L (15-37); BUN/Creatinine Ratio 30.6; Blood Alcohol < 3.0 mg/dL (0-5); Blood Urea Nitrogen 19 mg/dL (7-18); Calcium 8.3 mg/dL (8.5-10.1); Carbon Dioxide 22 mmol/L (21-32); Chloride 103 mmol/L (98-107); GFR African American 121 mL/min; GFR Non-African American 100 mL/min; Glucose 174 mg/dL (74-106); Potassium 3.2 mmol/L (3.5-5.1); Sodium 137 mmol/L (136-145)
[2022-03-08 17:40] LABS: Alkaline Phosphatase 79 U/L (45-117); Bilirubin, Total 0.4 mg/dL (0.2-1.0); Total Protein 6.4 g/dL (6.4-8.2)
[2022-03-08 17:56] LABS: INR 1.11 (0.9-1.15); Partial Thromboplastin Time 28.8 sec (24.6-33.4)
[2022-03-08] MEDS ORDERED: NITROGLYCERIN 0.4 MG SL TAB SL PRN (21:30)
[2022-03-08] MEDS ORDERED: ONDANSETRON HCL 4 MG/2 ML VIAL IV PRN (21:30)
[2022-03-08] MEDS ORDERED: MORPHINE SULFATE INJ 2 MG/ml SYRG IV PRN (21:30)
[2022-03-08] MEDS ORDERED: PANTOPRAZOLE 40 MG/10 ML VIAL INJ IV ONE (21:30)
[2022-03-08] MEDS: SODIUM CHLORIDE 0.9% 1,000 ML IV SCH (21:30)
[2022-03-08 22:01] LABS: % Iron Saturation 28.2 % (15-50)
[2022-03-08 22:12] LABS: Cholesterol 81 mg/dL (< 200); Triglycerides 85 mg/dL (< 150)
[2022-03-08 22:14] LABS: HDL Cholesterol 23 mg/dL (40-59); LDL Cholesterol 50 mg/dL (< 100)
[2022-03-09 04:43] LABS: Basophils # (auto) 0 10 ^3/uL (0-0.2); Basophils % (auto) 0.6 % (0.0-2.0); Eosinophils # (auto) 0.1 10 ^3/uL (0-0.8); Lymphocytes # (auto) 2.2 10 ^3/uL (0.4-5.4); Neutrophils # (auto) 3.2 10 ^3/uL (1.6-8.6)
[2022-03-09 04:46] LABS: Eosinophils % (auto) 1.5 % (0.0-7.0); Hematocrit 24.1 % (36.0-46.0); Hemoglobin 8.2 g/dL (12.2-16.2); Lymphocytes % (auto) 36.4 % (10.0-50.0); Mean Corpuscular Hemoglobin 28.7 pg (28.0-32.0); Mean Corpuscular Hgb Conc. 33.8 g/dL (32.0-36.0); Monocytes # (auto) 0.4 10 ^3/uL (0-1.3); Monocytes % (auto) 7.2 % (0.0-12.0); Neutrophils % (auto) 54.3 % (37.0-80.0); Red Blood Cells 2.84 10^6/uL (4.0-5.20); Red Cell Distribution Width 17.5 % (11.8-14.3); White Blood Cell 5.9 10^3/uL (4.4-10.8)
[2022-03-09 05:08] LABS: Albumin 2.1 g/dL (3.4-5.0); Calcium 8.1 mg/dL (8.5-10.1); Potassium 3.5 mmol/L (3.5-5.1)
[2022-03-09 05:11] LABS: BUN/Creatinine Ratio 32.8; Bilirubin, Total 0.3 mg/dL (0.2-1.0); Total Protein 5.9 g/dL (6.4-8.2)
[2022-03-09 08:12] LABS: Urine Bacteria MANY /hpf (None Seen); Urine Blood Negative /uL (Negative); Urine Budding Yeast MODERATE /hpf (None Seen); Urine Specific Gravity 1.012 (1.001-1.035); Urine WBC 311 /hpf (0 - 5); Urine WBC Clumps PRESENT /hpf (None Seen)
[2022-03-09] MEDS ORDERED: DEXTROSE (50%) 50ML SYRG IV PRN (09:15)
[2022-03-09] MEDS: PANTOPRAZOLE 40 MG/10 ML VIAL INJ IV SCH (10:50)
[2022-03-09] MEDS: ENOXAPARIN SOD 40 MG/0.4 ML SYRINGE SC SCH (10:50)
[2022-03-09] MEDS: SODIUM CHLORIDE 0.9% 1,000 ML IV SCH ×2 (11:12→19:30)
[2022-03-09] MEDS: ACCU-CHEK COMFORT CURVE STRIP VI SCH ×3 (12:10→21:01)
[2022-03-09] MEDS: InsuLIN REG 1unit/0.01ml Soln (100units/ml) SC SCH ×3 (12:14→21:08)
[2022-03-09 16:09] VITALS: BP_SYST 127; BP_SYST 128; BP_DIAS 38; BP_DIAS 48
[2022-03-09 22:00] VITALS: BP 108/29
[2022-03-10] MEDS: SODIUM CHLORIDE 0.9% 1,000 ML IV SCH ×2 (04:00→13:30)
[2022-03-10 05:00] VITALS: BP 134/39
[2022-03-10 05:25] LABS: Alcohol, Urine < 3.0 mg/dL (0-10); Amphetamine Screen, Urine NEGATIVE (NEGATIVE); Barbiturate Scree,Urine NEGATIVE (NEGATIVE); Benzodiazephine Screen, Urine NEGATIVE (NEGATIVE); Cannabinoid Screen, Urine NEGATIVE (NEGATIVE); Cocaine Screen, Urine NEGATIVE (NEGATIVE); Opiate Scree,Urine NEGATIVE (NEGATIVE); Phencyclidine Screen, Urine NEGATIVE (NEGATIVE)
[2022-03-10] MEDS: ACCU-CHEK COMFORT CURVE STRIP VI SCH ×4 (06:43→22:18)
[2022-03-10] MEDS: InsuLIN REG 1unit/0.01ml Soln (100units/ml) SC SCH ×4 (06:51→22:32)
[2022-03-10] MEDS ORDERED: ACET-1156 PO (08:19)
[2022-03-10] MEDS ORDERED: ASCO500T11 PO (08:19)
[2022-03-10] MEDS ORDERED: LACTCAP3 PO (08:19)
[2022-03-10] MEDS ORDERED: LOSA-39 PO (08:19)
[2022-03-10] MEDS ORDERED: ONDA-155 PO (08:19)
[2022-03-10] MEDS ORDERED: INSLISPI SC (08:26)
[2022-03-10 09:00] VITALS: BP 90/52
[2022-03-10] MEDS: PANTOPRAZOLE 40 MG/10 ML VIAL INJ IV SCH (10:18)
[2022-03-10] MEDS: ENOXAPARIN SOD 40 MG/0.4 ML SYRINGE SC SCH (10:18)
[2022-03-10] MEDS: cefTRIAXone 1GM/50ML D5W 50 ML IV SCH (11:13)
[2022-03-10 13:00] VITALS: BP 142/71
[2022-03-10 17:00] VITALS: BP 141/59
[2022-03-10 21:40] VITALS: BP 155/45
[2022-03-11] MEDS: SODIUM CHLORIDE 0.9% 1,000 ML IV SCH ×3 (00:16→19:30)
[2022-03-11 04:41] VITALS: BP 147/50
[2022-03-11] MEDS: ACCU-CHEK COMFORT CURVE STRIP VI SCH ×4 (06:12→22:28)
[2022-03-11] MEDS: InsuLIN REG 1unit/0.01ml Soln (100units/ml) SC SCH ×4 (06:17→22:30)
[2022-03-11 08:00] VITALS: BP 146/65
[2022-03-11] MEDS: cefTRIAXone 1GM/50ML D5W 50 ML IV SCH (09:00)
[2022-03-11] MEDS: PANTOPRAZOLE 40 MG/10 ML VIAL INJ IV SCH (10:00)
[2022-03-11] MEDS: ENOXAPARIN SOD 40 MG/0.4 ML SYRINGE SC SCH (10:09)
[2022-03-11 13:00] VITALS: BP 135/62
[2022-03-11 17:00] VITALS: BP 144/66
[2022-03-11 22:00] VITALS: BP 140/67
[2022-03-12 05:00] VITALS: BP 159/59
[2022-03-12] MEDS: SODIUM CHLORIDE 0.9% 1,000 ML IV SCH ×2 (05:30→15:29)
[2022-03-12] MEDS: ACCU-CHEK COMFORT CURVE STRIP VI SCH ×4 (06:35→22:02)
[2022-03-12] MEDS: InsuLIN REG 1unit/0.01ml Soln (100units/ml) SC SCH ×4 (06:40→22:09)
[2022-03-12 08:49] VITALS: BP 132/49
[2022-03-12] MEDS: cefTRIAXone 1GM/50ML D5W 50 ML IV SCH ×2 (09:00→09:27)
[2022-03-12] MEDS: PANTOPRAZOLE 40 MG/10 ML VIAL INJ IV SCH ×2 (09:27→09:40)
[2022-03-12] MEDS: ENOXAPARIN SOD 40 MG/0.4 ML SYRINGE SC SCH (09:28)
[2022-03-12 13:00] VITALS: BP 128/49
[2022-03-12 17:00] VITALS: BP 114/56
[2022-03-12 22:00] VITALS: BP 147/70
[2022-03-13] MEDS: SODIUM CHLORIDE 0.9% 1,000 ML IV SCH ×2 (01:30→04:30)
[2022-03-13 05:00] VITALS: BP 142/69
[2022-03-13] MEDS: ACCU-CHEK COMFORT CURVE STRIP VI SCH ×4 (06:44→21:22)
[2022-03-13] MEDS: InsuLIN REG 1unit/0.01ml Soln (100units/ml) SC SCH ×4 (06:44→21:24)
[2022-03-13 08:30] VITALS: BP 130/59
[2022-03-13] MEDS: cefTRIAXone 1GM/50ML D5W 50 ML IV SCH (09:06)
[2022-03-13] MEDS: ENOXAPARIN SOD 40 MG/0.4 ML SYRINGE SC SCH (09:07)
[2022-03-13] MEDS: FLUCONAZOLE 200MG/100ML 100 ML IV SCH (09:07)
[2022-03-13 13:00] VITALS: BP 119/54
[2022-03-13 23:13] VITALS: BP 142/62
[2022-03-14] MEDS: SODIUM CHLORIDE 0.9% 1,000 ML IV SCH ×3 (00:15→17:30)
[2022-03-14 04:38] VITALS: BP 154/45
[2022-03-14] MEDS: ACCU-CHEK COMFORT CURVE STRIP VI SCH ×4 (07:02→22:27)
[2022-03-14] MEDS: InsuLIN REG 1unit/0.01ml Soln (100units/ml) SC SCH ×4 (07:02→22:41)
[2022-03-14 08:00] VITALS: BP 155/49
[2022-03-14] MEDS: cefTRIAXone 1GM/50ML D5W 50 ML IV SCH (08:44)
[2022-03-14 09:00] VITALS: BP 155/49
[2022-03-14] MEDS: ENOXAPARIN SOD 40 MG/0.4 ML SYRINGE SC SCH (10:48)
[2022-03-14] MEDS: FLUCONAZOLE 200MG/100ML 100 ML IV SCH (10:48)
[2022-03-14] MEDS: LINEZOLID 600MG/300ML 300 ML IV SCH ×2 (11:57→22:37)
[2022-03-14 13:00] VITALS: BP 144/49
[2022-03-14 16:45] VITALS: BP 148/49
[2022-03-14] MEDS: Pro-Stat SF 30ml Vanilla PO SCH (18:33)
[2022-03-14 22:00] VITALS: BP 140/24
[2022-03-15 05:00] VITALS: BP 139/39
[2022-03-15] MEDS: ACCU-CHEK COMFORT CURVE STRIP VI SCH ×4 (07:08→22:03)
[2022-03-15] MEDS: InsuLIN REG 1unit/0.01ml Soln (100units/ml) SC SCH ×4 (07:11→22:03)
[2022-03-15] MEDS: Pro-Stat SF 30ml Vanilla PO SCH ×2 (08:00→18:11)
[2022-03-15 09:00] VITALS: BP 150/50
[2022-03-15] MEDS: cefTRIAXone 1GM/50ML D5W 50 ML IV SCH (09:00)
[2022-03-15] MEDS: FLUCONAZOLE 200MG/100ML 100 ML IV SCH (09:45)
[2022-03-15] MEDS ORDERED: LINE1TAB6 PO (09:51)
[2022-03-15] MEDS ORDERED: FLUC200T35 PO (09:57)
[2022-03-15] MEDS: ENOXAPARIN SOD 40 MG/0.4 ML SYRINGE SC SCH (10:00)
[2022-03-15] MEDS: LINEZOLID 600MG/300ML 300 ML IV SCH ×2 (10:45→21:37)
[2022-03-15 12:49] VITALS: BP 161/39
[2022-03-15 13:00] VITALS: BP 150/45
[2022-03-15 16:49] VITALS: BP 155/48
[2022-03-15 22:00] VITALS: BP 140/50
[2022-03-15] MEDS: SODIUM CHLORIDE 0.9% 1,000 ML IV SCH (22:05)
[2022-03-16 05:00] VITALS: BP 145/49
[2022-03-16] MEDS: InsuLIN REG 1unit/0.01ml Soln (100units/ml) SC SCH ×2 (06:35→12:17)
[2022-03-16] MEDS: ACCU-CHEK COMFORT CURVE STRIP VI SCH ×2 (06:36→12:10)
[2022-03-16] MEDS: Pro-Stat SF 30ml Vanilla PO SCH (07:49)
[2022-03-16 08:00] VITALS: BP 132/56
[2022-03-16 09:00] VITALS: BP 132/56
[2022-03-16] MEDS: cefTRIAXone 1GM/50ML D5W 50 ML IV SCH (10:38)
[2022-03-16] MEDS: SODIUM CHLORIDE 0.9% 1,000 ML IV SCH (10:38)
[2022-03-16] MEDS: LINEZOLID 600MG/300ML 300 ML IV SCH (10:39)
[2022-03-16] MEDS: ENOXAPARIN SOD 40 MG/0.4 ML SYRINGE SC SCH (10:39)
[2022-03-16] MEDS: FLUCONAZOLE 200MG/100ML 100 ML IV SCH (10:39)
[2022-03-16 13:00] VITALS: BP 148/66
[2022-03-16 13:37] VITALS: BP 148/66
== END 2022-03-16 15:33 | disposition home health service (06) | DRG 52 ==
LOC: ER 16:07 → EDUNIT# 16:07 → EDBD 16:07 → TELE 21:25 → TELE-WESTW 03-09 16:04
PROVIDERS: ADMIT Nurse Practitioner Family; ATTEND Internal Medicine
DX: G93.41 Metabolic encephalopathy (principal); E43 Unspecified severe protein-calorie malnutrition; E88.09 Other disorders of plasma-protein metabolism, not elsewhere classified; D64.9 Anemia, unspecified; E03.9 Hypothyroidism, unspecified; E11.65 Type 2 diabetes mellitus with hyperglycemia; E66.9 Obesity, unspecified; Z20.822 Contact with and (suspected) exposure to COVID-19; N39.0 Urinary tract infection, site not specified; I10 Essential (primary) hypertension; E87.6 Hypokalemia; Z89.512 Acquired absence of left leg below knee; Z88.8 Allergy status to other drugs, medicaments and biological substances; Z68.22 Body mass index [BMI] 22.0-22.9, adult
CPT/HCPCS: 36415; 70450; 71045; 80053; 80061; 80307; 80320; 81001; 82962; 83036; 83540; 83550; 83605; 84443; 84484; 85025; 85379; 85610; 85730; 87040; 87081; 87086; 87088; 87186; 87426; 93005; 96361; 96372; 96374; C9113; G0378; J0696; J1450; J1815